=== PATIENT | female | born 1940 | race African-American/Black ===

== ENCOUNTER 2017-08-07 12:02 | Inpatient (IN) ==
--- NOTE | 2017-08-07 12:08 | Emergency Department Note ---
Disposition Clinical Impression: Intertrochanteric fracture of right hip Qualifiers: Encounter type: initial encounter Fracture type: closed Fracture alignment: displaced Qualified Code(s): S72.141A - Displaced intertrochanteric fracture of right femur, initial encounter for closed fracture Disposition: Admitted As Inpatient Condition: Fair Referrals: Jasmin Leone MD [Primary Care Provider] - Forms: ED Satisfaction Letter Time of Disposition: 15:41 Lower Extremity Injury HPI - General Chief Complaint: ED Extremity Injury, Lower Stated Complaint: fall/leg pain Time Seen by Provider: 08/07/17 12:05 Source: patient, EMS Mode of arrival: EMS Limitations: no limitations Nursing Notes Reviewed: Yes Vital Signs Reviewed: Yes - History of Present Illness HPI Narrative: 77-year-old walker with her and fell injuring her right hip region. Denies striking her head no loss of consciousness is not on a blood thinner. Pt Subjective Complaint: hip injury Injury location: Right hip Onset (ago): Just [employer] Mechanism of Injury: fall Context: fall Place: street/outdoors Pain Severity: severe Improves with: nothing Worsens with: weight bearing, movement Associated symptoms: Reports: unable to bear weight - Related Data Home Medications Medication Instructions Recorded Confirmed Allopurinol [Zyloprim 100 MG] 100 mg PO DAILY 05/08/17 06/12/17 Clopidogrel [Plavix] 75 mg PO DAILY 05/08/17 06/12/17 Gabapentin [Gralise] 300 mg PO TID 05/08/17 06/12/17 HYDROcodone/Acet 7.5/325 mg [[place] 1 tab PO Q4H 05/08/17 06/12/17 7.5-325 mg] NIFEdipine [Nifedipine ER] 60 mg PO QDPC 05/08/17 06/12/17 Simvastatin [Zocor] 40 mg PO HS 05/08/17 06/12/17 hydrALAZINE [HydrALAZINE] 25 mg PO Q8HR 05/08/17 06/12/17 PrednisoLONE Acetate 1% Opth 1 drop RIGHT EYE QID 06/12/17 06/12/17 [PredFORTE 1%] Allergies Allergy/AdvReac Type Severity Reaction Status Date / Time Iodinated Contrast- Oral and AdvReac Intermediate Hives Verified 06/12/17 15:25 IV Dye aspirin AdvReac Unknown Abdominal Verified 06/12/17 15:25 Pain Constitutional: Denies: fever, chills, weakness, weight change Eyes: Denies: eye pain, eye discharge, vision change ENT ED: Denies: ear pain, throat pain, dental pain, hearing loss, epistaxis, congestion, dysphagia Cardiovascular: Denies: chest pain, palpitations, dyspnea on exertion, edema, syncope Respiratory: Denies: cough, dyspnea, wheezes, hemoptysis, stridor Gastrointestinal: Denies: abdominal pain, nausea, vomiting, diarrhea, constipation, hematemesis, melena, hematochezia Genitourinary: Denies: dysuria, frequency, hematuria, discharge Musculoskeletal: Reports: arthralgia. Denies: back pain, neck pain, myalgia Integumentary: Denies: rash, abrasion, lesions Neurological: Denies: headache, weakness, numbness, paresthesias, confusion, abnormal gait, vertigo Psychiatric: Denies: anxiety, depression, suicidal thoughts, homicidal thoughts , auditory hallucinations, visual hallucinations Endocrine: Denies: fatigue Hematological/Lymphatic: Denies: easy bleeding, easy bruising Allergic/Immunologic: Denies: facial swelling, urticaria Past Medical History - Social History Smoking Status: Current every day smoker Alcohol use: Reports: none Drug use: Reports: none Physical Exam - General Limitations: no limitations General appearance: alert, in no apparent distress - Head Head exam: atraumatic, normocephalic, normal inspection - Eye Eye exam: Present: normal appearance, PERRL, EOMI - ENT ENT exam: normal exam, normal oropharynx, mucous membranes moist - Neck Neck exam: Present: normal inspection, full ROM, trachea midline - Chest Chest inspection: Present: normal inspection, symmetric chest wall rise - Respiratory Respiratory exam: Present: normal lung sounds bilaterally - Cardiovascular Cardiovascular exam: Present: regular rate, normal rhythm, normal heart sounds - Abdominal Exam Abdominal exam: Present: soft, Non-Tender. Absent: tenderness, distention, guarding, rebound, rigidity - Expanded Lower Extremity Exam Upper leg exam: Present: tenderness Neurovascular/Tendon exam: Absent: motor deficit, sensory deficit, tendon deficit Gait: not tested/not observed - Back Exam Back exam: Present: normal inspection, full ROM. Absent: tenderness - Neurological Exam Neurological exam: Present: alert, oriented X3. Absent: motor sensory deficit - Psychiatric Psychiatric exam: Present: normal affect, normal mood - Skin Skin exam: Present: warm, dry, intact, normal color Course - Reevaluation(s) Reevaluation #1: 77-year-old who fell injuring her right hip initial x-rays were read as negative CT scan shows an intratrochanteric fracture. Time: 15:39 - Consultations Consultation #1: Discussed with Dr. Patel, admit to the hospitalist will see the patient for the hip fracture. Time: 15:38 Consultation #2: Discussed with Dr. Blancas, admit. He requested preop labs. Time: 16:03 Vital Signs Temperature 97.3 F L 08/07/17 12:05 Pulse Rate 116 08/07/17 12:05 Respiratory Rate 16 08/07/17 12:05 Blood Pressure 147/86 08/07/17 12:05 O2 Sat by Pulse Oximetry 96 08/07/17 12:05 Temperature 97.3 F L 08/07/17 12:05 Pulse Rate 116 08/07/17 14:05 Respiratory Rate 16 08/07/17 14:05 Blood Pressure 177/89 08/07/17 14:05 O2 Sat by Pulse Oximetry 96 08/07/17 14:05 Oxygen Delivery Oxygen Delivery Room Air Extremity Injury, Lower - Radiology Data Radiology results reviewed: Yes I reviewed the patient's radiology results. Femur X-Ray 08/07/17 12:05 IMPRESSION: 1. Minimally displaced intertrochanteric fracture of the right hip. 2. Mild bony demineralization. 3. Mild degenerative changes of the bilateral hips. Of note, this final report differs from the preliminary report provided. The fracture was seen in retrospect after the CT was obtained on the same day. Please refer to dedicated CT report for further details. D/ / 08/07/2017 15:19:53 Aurelia Bailey MD / sahara Interpreting Provider: Aurelia Bailey MD Pelvis X-Ray 08/07/17 12:05 IMPRESSION: 1. Minimally displaced intertrochanteric fracture of the right hip. 2. Mild bony demineralization. 3. Mild degenerative changes of the bilateral hips. Of note, this final report differs from the preliminary report provided. The fracture was seen in retrospect after the CT was obtained on the same day. Please refer to dedicated CT report for further details. D/ : / 08/07/2017 15:19:53 Aurelia Bailey MD / sahara Interpreting Provider: Aurelia Bailey MD Pelvis CT 08/07/17 13:26 IMPRESSION: 1. Acute traumatic closed, mildly comminuted, minimally impacted and angulated right intertrochanteric femoral fracture. 2. Diffuse osteopenia. D/ : / 08/07/2017 15:21:06 Harmeet Mabry MD / miguel Interpreting Provider: Harmeet Mabry MD
[2017-08-07] MEDS ORDERED: *HR* Morphine 2 MG/ML SYRINGE SQ ONE (14:07)
[2017-08-07] MEDS ORDERED: Ondansetron ODT 4 MG TAB.RAPDIS SL ONE (14:07)
[2017-08-07] MEDS ORDERED: *HR* Morphine 2 MG/ML SYRINGE IVP PRN (15:40)
[2017-08-07 16:46] LABS: Basophils # 0.1 K/mcL (0.0-0.2); Basophils % 0.6 %; Eosinophils # 0.1 K/mcL (0.0-0.6); Eosinophils % 0.7 %; Hematocrit 41.2 % (35.3-44.9); Hemoglobin 13.3 g/dL (11.5-15.4); Immature Granulocytes % 0.1 % (0-4); Lymphocytes # 1.2 K/mcL (0.6-4.6); Lymphocytes % 12.5 %; Mean Corpuscular HGB Conc 32.3 g/dL (31.6-35.5); Mean Corpuscular Hemoglobin 27.9 pg (28.0-33.3); Mean Corpuscular Volume 86.6 fL (83.0-100.0); Monocytes # 0.6 K/mcL (0.0-1.3); Monocytes % 6.3 %; Neutrophils # 7.9 K/mcL (1.6-8.9); Platelet Count 228 K/mcL (140-400); Red Blood Count 4.76 M/mcL (3.82-4.97); Red Cell Distribution Width 13.2 % (11.5-14.5); Segmented Neutrophils % 79.8 %
[2017-08-07 16:53] LABS: Prothrombin Time 11.2 Seconds (9.4-12.1)
[2017-08-07 16:55] LABS: Activated Partial Thrombo Time 34.2 Seconds (26.0-36.0)
[2017-08-07 17:01] LABS: Calcium 9.4 mg/dL (8.6-10.3); Potassium 4.2 mEq/L (3.5-5.1)
[2017-08-07] MEDS ORDERED: tiZANidine 4 MG TABLET PO PRN (21:22)
[2017-08-07] MEDS ORDERED: Temazepam 15 MG CAPSULE PO PRN (21:26)
[2017-08-07] MEDS ORDERED: Naloxone 0.4 MG/ML INJ IVP PRN (21:50)
[2017-08-07] MEDS ORDERED: *HR* HYDROmorphone (PF) 1 MG/ML SYRINGE IVP PRN (21:50)
[2017-08-07] MEDS ORDERED: Ondansetron 4 MG/2 ML VIAL IVP PRN (21:50)
[2017-08-07] MEDS ORDERED: Acetaminophen 325 MG TABLET PO PRN (21:50)
[2017-08-07] MEDS ORDERED: *HR* HYDROcodone/Acet 5/325 mg TABLET PO PRN (21:50)
[2017-08-07] MEDS: *HR* OxyCODONE/APAP 10/325 TABLET PO PRN (22:14)
--- NOTE | 2017-08-07 22:33 | Anesthesia Evaluation PreOp ---
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 with maintenance dosing through 2014 -- patient is currently in remission; right eye injury in 2010) Anesthesia History: No Prior Anesthetic Complications, Past Anesthesia ( appendectomy, hysterectomy, tonsillectomy, back surgery, right knee replacement) Alcohol Use: none Drug use: none Medications and Allergies Allopurinol [Zyloprim 100 MG] 200 mg PO BID 05/08/17 [History] NIFEdipine [Nifedipine ER] 60 mg PO DAILY 05/08/17 [History] Simvastatin [Zocor] 40 mg PO HS 05/08/17 [History] Cholecalciferol (D-3) [Vitamin D] 1,000 unit PO DAILY 08/07/17 [History] Cyanocobalamin (Vitamin B-12) [Vitamin B-12] 500 mcg PO DAILY 08/07/17 [History] Gabapentin [Neurontin] 300 mg PO QAM 08/07/17 [History] Gabapentin [Neurontin] 400 mg PO HS 08/07/17 [History] Meloxicam [Meloxicam] 15 mg PO DAILY 08/07/17 [History] Oxycodone HCl/Acetaminophen [Percocet 10-325 mg Tablet] 1 each PO Q8H PRN [History] Tizanidine HCl 4 mg PO Q8H PRN 08/07/17 [History] 3 Allergy/AdvReac Type Severity Reaction Status Date / Time Iodinated Contrast- Oral and AdvReac Intermediate Hives Verified 06/12/17 15:25 IV Dye aspirin AdvReac Unknown Abdominal Verified 06/12/17 15:25 Pain - Meds/Allergy Pre-op Review Medications Reviewed: Yes Allergies Reviewed: Yes Beta Blockers on Current Med List: No Anesthesia Results - Labs 08/08/17 06:21 08/08/17 06:21 - Imaging Additional studies: 08-08-17 TTE: Impressions: LVEF 60%. Mild left ventricular diastolic dysfunction. Normal right ventricular structure and function. Mild aortic regurgitation by color-flow imaging. May be moderate by Doppler. Mild mitral regurgitation. Mild tricuspid regurgitation. Mild pulmonic regurgitation. Mild pulmonary hypertension. Anesthesia Exam Last Vital Signs Temp 98.3 F 08/07/17 20:01 Pulse 74 08/07/17 20:01 Resp 14 08/07/17 20:01 BP 178/76 08/07/17 20:01 Pulse Ox 98 08/07/17 20:01 Weight: 54 kg - HEENT Pupil (Motor): Pupils equal, EOMI Mallampati: III Teeth: Missing, Poor dentition Oral Opening: Greater than 3 - INSURANCE AGENCY OWNER LOC: Oriented - Cardiac Rhythm: Regular Murmur: None - Pulmonary Breath Sounds: bilateral Clear Respiratory Effort: Symmetrical Anesthesia Assess/Plan ASA Score: 3 Modified Beatriz Scale for Level of Consciousness: Cooperative, oriented, and tranquil Anesthetic Plan: General Monitoring Plan: Standard Monitors Recovery Plan: PACU
--- NOTE | 2017-08-07 23:23 | Internal Med History&Physical ---
<Darvin Abel - Last Filed: 08/08/17 00:00> Date of Encounter: 08/08/17 Time of Encounter: 20:30 Assessment and Plan (1) Intertrochanteric fracture of right hip Current visit: Yes Status: Acute Acute displaced intertrochanteric fracture of the right femur (closed) sustained from fall this morning in bathroom. Pts. reports he was in another room when pt. called out for him. He reports pts. legs were folded under her body and she had injured her right LE. He reports she was unable to bear weight following fall. CT of the right lower extremity without contrast today shows acute traumatic closed fracture of the right proximal femur involving the intertrochanteric region and greater trochanter unchanged from CT pelvis and x-ray studies earlier today. No additional fractures are identified. Degenerative changes to the right hip and knee. Diffuse bone demineralization. Orthopedic consult ordered in ED and I appreciate the consult. Pt. has hx of syncopal falls, so echocardiogram and bilateral carotid Dopplers ordered. Recommend holding surgery to assess for possible surgical risk based on these results. Stair-step pain medications for pain mgmt. Falls/ safety precautions w/bedrest. PT/OT consults ordered to assess for post- discharge rehabilitation placement/needs. Urinary Maciel catheter ordered d/t pts. inability to bear weight d/t trauma. Pt. discussed w/Dr. Franco who is in agreement w/plan of care. Pt. is at high risk for further morbidity and injury d/t current fx of right femur, hx of syncopal falls, current sx, and risk factors. Inpatient. Qualifiers: Encounter type: initial encounter Fracture type: closed Fracture alignment: displaced Qualified Code(s): S72.141A - Displaced intertrochanteric fracture of right femur, initial encounter for closed fracture (2) Underweight Current visit: Yes Status: Acute Acute underweight status. Current BMI 19.0. Pts. reports pt. has not been eating or drinking much recently. Nutrition consult ordered to assess for PO supplementation. Monitor I&O and daily weight. 0.9 NS IV fluids @ 100mL/HR ordered. (3) Hx of syncope Current visit: Yes Status: Chronic Hx of syncopal falls. Pts. reports pt. has become syncopal and fallen several times in the past. Today's fall unwitnessed so there is uncertainty if fall was d/t syncope. Echocardiogram ordered. Bilateral carotid Doppler duplex imaging ordered. Recommend holding surgery until echocardiogram and carotid Doppler results are available at assess for surgical risk. Falls/safety precautions. (4) HLD (hyperlipidemia) Current visit: Yes Status: Chronic Hx of chronic HLD. Lipid panel in a.m. labs. Continue pts. Zocor. Qualifiers: Hyperlipidemia type: pure hypercholesterolemia Qualified Code(s): E78.00 - Pure hypercholesterolemia, unspecified; E78.0 - Pure hypercholesterolemia (5) Gout Current visit: Yes Status: Chronic Hx of chronic gout. Uric acid in a.m. labs. Continue pts. Allopurinol. Qualifiers: Gout site: unspecified site Gout etiology: unspecified cause Chronicity: chronic Presence of tophus: without tophus Qualified Code(s): M1A.9XX0 - Chronic gout, unspecified, without tophus (tophi) (6) Arthritis Current visit: Yes Status: Chronic Hx of chronic arthritis. Stair-step pain medications for pain mgmt. Will hold pts. meloxicam d/t current CKD, GFR of 34, and creatinine of 1.47. (7) CKD (chronic kidney disease) stage 3, GFR 30-59 ml/min Current visit: Yes Status: Chronic Hx of chronic CKD. Currently stage 3 w/GFR of 34 and creatinine of 1.47. Will use IV fluids judiciously and avoid nephrotoxins. Hold meloxicam. Monitor I&O and daily weight. (8) DVT prophylaxis Current visit: Yes Status: Acute Bilateral foot pumps ordered for DVT prophylaxis d/t possible surgical intervention. Internal Medicine - H&P: HPI Chief complaint: RLE injury/pain Admitted From: Emergency Dept Plans for Post Hospital Care: Home History of present illness: Ms. Witt is a 77 year old female with medical hx of HLD, gout, and arthritis presents from the ED with chief complaint of right lower extremity pain related to a fall sustained in the bathroom today at 9 AM. Patient's states he was in another room when patient fell and reports the patient has previous syncopal falls. Patient is not currently anticoagulated. Patient denies recent illness, fever, chills, weakness, changes in vision, cough, chest pain, palpitations, shortness of breath, abdominal pain, nausea, vomiting, diarrhea, constipation, unusual bleeding, headache, weakness, numbness, tingling, dizziness, or lightheadedness. Past Med Surg Social Fam HX - Past Medical History Source: patient, old records reviewed, obtained from family (Lymphoma) Medical history: cancer, CVA, hyperlipidemia, hypertension, TIA, other Psychiatric history: no psych history - Social History Smoking Status: Current every day smoker Packs per day: 1 PPD Smokeless Tobacco Status: No Alcohol use: none Drug use: none Current living situation: Home, With Family Activity Level: Uses cane/walker Recent Out of Country Travel Within the Last 8 Weeks: No Exposure or Possible Exposure to Illness During Travel: No - Family History Father Race: Family Member Ethnicity: Non- Living Status: Age at : 57 Cause of : Lung cancer Hx Family Cancer: Yes (Lung) Mother Race: Family Member Ethnicity: Non- Living Status: Age at : 51 Cause of : Colon cancer Hx Family Cancer: Yes (Colon) Brother Race: Family Member Ethnicity: Non- Living Status: Still Living Hx Family Medical Disorders: No Sister Race: Family Member Ethnicity: Non- Living Status: Still Living Hx Family Respiratory Disorders: Yes (COPD) Hx Family Neurologic Disorders: Yes (Syncope) Internal Medicine - H&P: Meds Allopurinol [Zyloprim 100 MG] 200 mg PO BID 05/08/17 [History] NIFEdipine [Nifedipine ER] 60 mg PO DAILY 05/08/17 [History] Simvastatin [Zocor] 40 mg PO HS 05/08/17 [History] Cholecalciferol (D-3) [Vitamin D] 1,000 unit PO DAILY 08/07/17 [History] Cyanocobalamin (Vitamin B-12) [Vitamin B-12] 500 mcg PO DAILY 08/07/17 [History] Gabapentin [Neurontin] 300 mg PO QAM 08/07/17 [History] Gabapentin [Neurontin] 400 mg PO HS 08/07/17 [History] Meloxicam [Meloxicam] 15 mg PO DAILY 08/07/17 [History] Oxycodone HCl/Acetaminophen [Percocet 10-325 mg Tablet] 1 each PO Q8H PRN [History] Tizanidine HCl 4 mg PO Q8H PRN 08/07/17 [History] 3 Allergy/AdvReac Type Severity Reaction Status Date / Time Iodinated Contrast- Oral and AdvReac Intermediate Hives Verified 06/12/17 15:25 IV Dye aspirin AdvReac Unknown Abdominal Verified 06/12/17 15:25 Pain All Systems PM: A 10-system review of systems was performed and is negative for pertinent findings except as documented above in the HPI. - Constitutional Constitutional: as per HPI, falls, no chills, no fever(s), no night sweats - EENT Eyes: no change in vision, no discharge, no pain, no photophobia Ears: no ear discharge, no ear pain, no tinnitus Nose, mouth and throat: no dysphagia, no nasal discharge, no neck pain, no sore throat - Breasts Breasts: as per HPI - Cardiovascular Cardiovascular ROS IM: as per HPI, irregular heart rhythm (Murmur r/t rheumatic fever as child), syncope, no chest pain, no diaphoresis, no dyspnea, no lightheadedness, no palpitations - Respiratory Respiratory: no cough, no dyspnea, no wheezing, no excessive phlegm production - Gastrointestinal Gastrointestinal: no abdominal pain, no diarrhea, no hematemesis, no hematochezia, no melena, no nausea, no vomiting - Genitourinary Genitourinary: no change in urinary stream, no dysuria, no flank pain, no hematuria Menstruation: as per HPI - Musculoskeletal Musculoskeletal ROS IM: as per HPI, arthralgias, no numbness, no tingling - Integumentary Integumentary IM: no rash, no unusual bruising - Neurological Neurological ROS: as per HPI, memory loss, no confusion, no convulsions, no focal weakness, no numbness, no tingling, no tremor(s) - Psychiatric Psychiatric: as per HPI - Endocrine Endocrine IM: as per HPI - Hematologic/Lymphatic Hematologic/Lymphatic: no easy bruising - Allergic/Immunologic Allergic/Immunologic: as per HPI - Constitutional Vitals: Temp Pulse Resp BP Pulse Ox 98.3 F 74 14 178/76 98 08/07/17 20:01 08/07/17 20:01 08/07/17 20:01 08/07/17 20:01 08/07/17 20:01 General appearance: Present: cooperative, A&O X 3, pleasant, severe distress ( Pain in right leg), underweight, answers questions appropriately - Head Head exam: Present: atraumatic, normocephalic - Eye Eye exam: Present: PERRL, conjuntiva pink, sclera anicteric Pupils: Present: PERRL - ENT ENT exam: Present: normal exam - Neck Neck exam general surgery: Present: normal inspection - Respiratory Respiratory exam: Present: CTAB. Absent: accessory muscle use, rales, rhonchi, wheezes - Cardiovascular Cardiovascular exam: Present: irregular rhythm - GI/Abdominal GI/Abdominal exam: Present: normal bowel sounds, soft, no peritoneal signs. Absent: distended, tenderness - Rectal Rectal exam: Present: deferred - Additional comments: exam deferred. - Extremities Exam Extremities exam: Present: tenderness (Right leg) - Back Exam Back exam: Present: normal inspection - Neurological Exam Neurological exam: Present: CN II-XII intact, oriented X3 (Pt. exhibits minor forgetfulness during exam), no focal deficits. Absent: pronater drift, facial droop, speech deficit - Psychiatric Psychiatric exam: Present: anxious - Skin Skin exam: Present: dry, intact Internal Med - H&P Results - Labs CBC & Chem 7: 08/07/17 16:30 08/07/17 16:30 - Diagnostic Studies Other Images Additional comments: Impressions Femur X-Ray 08/07/17 12:05 IMPRESSION: 1. Minimally displaced intertrochanteric fracture of the right hip. 2. Mild bony demineralization. 3. Mild degenerative changes of the bilateral hips. Of note, this final report differs from the preliminary report provided. The fracture was seen in retrospect after the CT was obtained on the same day. Please refer to dedicated CT report for further details. D/ / 08/07/2017 15:19:53 Aurelia Bailey MD / sahara Interpreting Provider: Aurelia Bailey MD Pelvis X-Ray 08/07/17 12:05 IMPRESSION: 1. Minimally displaced intertrochanteric fracture of the right hip. 2. Mild bony demineralization. 3. Mild degenerative changes of the bilateral hips. Of note, this final report differs from the preliminary report provided. The fracture was seen in retrospect after the CT was obtained on the same day. Please refer to dedicated CT report for further details. D/ / 08/07/2017 15:19:53 Aurelia aBiley MD / sahara Interpreting Provider: Aurelia Bailey MD Lower Extremity CT 08/07/17 13:26 IMPRESSION: Redemonstration of acute traumatic closed fracture of right proximal femur involving the intertrochanteric region and greater trochanter unchanged from CT pelvis and x-ray studies earlier today. No additional fractures are identified. Degenerative changes to the right hip and right knee. Diffuse bone demineralization. D/ / 08/07/2017 15:49:28 Octavio Elise MD / holly Interpreting Provider: Octavio Elise MD CT scan - pelvis Additional comments: Impressions Pelvis CT 08/07/17 13:26 IMPRESSION: 1. Acute traumatic closed, mildly comminuted, minimally impacted and angulated right intertrochanteric femoral fracture. 2. Diffuse osteopenia. D/ / 08/07/2017 15:21:06 Harmeet Mabry MD / miguel Interpreting Provider: Harmeet Mabry MD - VTE Documentation of Mechanical Device: Venous foot pump, device <Yvon Franco - Last Filed: 08/08/17 00:26> Date of Encounter: 08/08/17 Time of Encounter: 00:15 - Constitutional Vitals: Temp Pulse Resp BP Pulse Ox 98.3 F 74 14 175/81 99 08/07/17 23:47 08/07/17 23:47 08/07/17 23:47 08/07/17 23:47 08/07/17 23:47 General appearance: Present: cooperative, A&O X 3, pleasant, underweight, answers questions appropriately - Head Head exam: Present: atraumatic, normal inspection - Eye Eye exam: Present: EOMI, PERRL. Absent: scleral icterus - ENT ENT exam: Present: mucous membranes dry, normal exam - Neck Neck exam general surgery: Present: normal inspection, supple. Absent: tenderness - Expanded Neck Exam Neck exam: Absent: carotid bruit - Respiratory Respiratory exam: Present: CTAB. Absent: rales, rhonchi, wheezes - Cardiovascular Cardiovascular exam: Present: +S1, +S2, systolic murmur (faint grade 1 murmur). Absent: diastolic murmur - GI/Abdominal GI/Abdominal exam: Present: normal bowel sounds, soft. Absent: tenderness - Extremities Exam Extremities exam: Present: normal capillary refill, tenderness. Absent: calf tenderness - Back Exam Back exam: Absent: CVA tenderness (L), CVA tenderness (R) - Skin Skin exam: Present: dry, warm. Absent: rash Internal Med - H&P Results - Labs CBC & Chem 7: 08/07/17 16:30 08/07/17 16:30 Labs: Urine 08/07/17 Range/Units 23:20 Urine Color Yellow (Yellow) Urine Clarity Turbid A (Clear) Urine pH 7.0 (5.0-8.0) pH Units Ur Specific [place] 1.013 (1.010-1.025) Urine Protein 30 H (Neg-Trace) mg/dL Urine Glucose (UA) Normal (Normal) mg/dL - Attending Attestation I discussed the patient [place] ROS, lab data, and exam findings with German Abel CNP. I then saw and examined patient independently as well. Patient is in no distress other than some pain in her right leg/hip. She is a little confused and disoriented now (chronic), likely exacerbated by pain meds received in ER. Her is present and confirms the history above. Additionally, he confirms the she has had several episodes of syncope. Further history reveals that she has history of rheumatic fever as a child and history of heart murmur. also informs me that she has history of bilateral carotid stenosis. All the above were diagnosed in [place] (where they resided until 6 months ago), and we have no available old records. Given the above history, I agree with German to order ECHO and Carotid Dopplers with review by daytime hospitalist prior to allowing patient to undergo surgery. I worry about severe aortic stenosis and/or bilateral severe carotid stenosis. If either are present, patient would be high risk for cardiovascular and/or neurovascular complications with surgery. Nonetheless, patient will most likely require surgical repair. Further consultation with cardiology and/or vascular surgery prior to surgery may be warranted pending the imaging studies noted above. Other than my comments above and noted exam findings, I agree with German's assessment and plan.
[2017-08-07 23:35] LABS: Bilirubin,Urine Negative (Negative); Blood,Urine Trace (Negative); Clarity,Urine Turbid (Clear); Color,Urine Yellow (Yellow); Glucose,Urine (UA) Normal (Normal); Ketones,Urine Negative (Negative); Leukocyte Esterase,Urine Large (Negative); Nitrite,Urine Positive (Negative); Protein,Urine 30 mg/dL (Neg-Trace); Specific Gravity,Urine 1.013 (1.010-1.025); Urobilinogen,Urine Normal (Normal)
[2017-08-07 23:38] LABS: Bacteria,Urine Many per hpf (None-Few); Hyaline Casts,Urine None Seen per lpf (None-Few); Squamous Epithelial Cell,Urine Many per lpf (None-Few); WBC,Urine TNTC per hpf (0-3)
[2017-08-08] MEDS: 0.9 % Sodium Chloride 1,000 ML IVC SCH ×2 (00:13→14:16)
[2017-08-08 06:49] LABS: Basophils # 0.1 K/mcL (0.0-0.2); Eosinophils # 0.2 K/mcL (0.0-0.6); Eosinophils % 3.8 %; Hematocrit 35.8 % (35.3-44.9); Hemoglobin 11.8 g/dL (11.5-15.4); Immature Granulocytes % 0.2 % (0-4); Lymphocytes # 1.7 K/mcL (0.6-4.6); Lymphocytes % 27.5 %; Mean Corpuscular Hemoglobin 28.6 pg (28.0-33.3); Mean Corpuscular Volume 86.7 fL (83.0-100.0); Monocytes # 0.6 K/mcL (0.0-1.3); Monocytes % 9.3 %; Neutrophils # 3.6 K/mcL (1.6-8.9); Platelet Count 191 K/mcL (140-400); Red Blood Count 4.13 M/mcL (3.82-4.97); Red Cell Distribution Width 13.2 % (11.5-14.5); Segmented Neutrophils % 58.2 %
[2017-08-08 06:54] LABS: Hemoglobin A1C 5.3 %
[2017-08-08 07:08] LABS: Albumin 3.4 g/dL (3.5-5.7); Albumin/Globulin Ratio 1.5 (1.1-2.2); Bilirubin,Total 0.6 mg/dL (0.3-1.0); Calcium 8.9 mg/dL (8.6-10.3); Chol/HDL Ratio 3.7 (0-4.9); Globulin 2.2 g/dL (2.4-3.5); Magnesium 2.1 mg/dL (1.6-2.6); Potassium 3.9 mEq/L (3.5-5.1); Total Protein 5.6 g/dL (6.4-8.9); Uric Acid 5.7 mg/dL (2.3-7.6)
[2017-08-08] MEDS: *HR* OxyCODONE/APAP 10/325 TABLET PO PRN ×2 (07:54→21:51)
--- NOTE | 2017-08-08 08:20 | Orthopedic Consult Note ---
Date of Encounter: 08/08/17 Time of Encounter: 08:11 Assessment and Plan (1) Intertrochanteric fracture of right hip Current Visit: Yes Status: Acute The diagnosis and treatment options were discussed with Geri. She has a right hip fracture, and to allow ambulation, ADLs and getting out of bed to decrease risk of medical complications surgery is recommended. Risks and benefits were discussed and she would like to proceed. -NPO -R hip nail today -Consent signed Qualifiers: Encounter type: initial encounter Fracture type: closed Fracture alignment: displaced Qualified Code(s): S72.141A - Displaced intertrochanteric fracture of right femur, initial encounter for closed fracture History of Present Illness Chief complaint: R hip pain HPI: Ms. Witt is a 77 year old female who had a fall from standing while at home yesterday. Had immediate pain in her right hip with inability to ambulate. Was brought to ED and diagnosed with a right hip fracture and admitted for definitive treatment. Denies pain in other extremities. Denies passing out or blacking out prior to fall. Ambulates with cane. Past Med Surg Social Fam HX - Past Medical History Medical history: cancer, CVA, hyperlipidemia, hypertension, TIA, other Psychiatric history: no psych history - Social History Smoking Status: Current every day smoker Packs per day: 1 PPD Smokeless Tobacco Status: No Alcohol use: none Drug use: none - Family History Father Race: Family Member Ethnicity: Non- Living Status: Age at : 57 Cause of : Lung cancer Hx Family Cancer: Yes (Lung) Mother Race: Family Member Ethnicity: Non- Living Status: Age at : 51 Cause of : Colon cancer Hx Family Cancer: Yes (Colon) Brother Race: Family Member Ethnicity: Non- Living Status: Still Living Hx Family Medical Disorders: No Sister Race: Family Member Ethnicity: Non- Living Status: Still Living Hx Family Respiratory Disorders: Yes (COPD) Hx Family Neurologic Disorders: Yes (Syncope) Medications and Allergies Allopurinol [Zyloprim 100 MG] 200 mg PO BID 05/08/17 [History] NIFEdipine [Nifedipine ER] 60 mg PO DAILY 05/08/17 [History] Simvastatin [Zocor] 40 mg PO HS 05/08/17 [History] Cholecalciferol (D-3) [Vitamin D] 1,000 unit PO DAILY 08/07/17 [History] Cyanocobalamin (Vitamin B-12) [Vitamin B-12] 500 mcg PO DAILY 08/07/17 [History] Gabapentin [Neurontin] 300 mg PO QAM 08/07/17 [History] Gabapentin [Neurontin] 400 mg PO HS 08/07/17 [History] Meloxicam [Meloxicam] 15 mg PO DAILY 08/07/17 [History] Oxycodone HCl/Acetaminophen [Percocet 10-325 mg Tablet] 1 each PO Q8H PRN [History] Tizanidine HCl 4 mg PO Q8H PRN 08/07/17 [History] 3 Allergy/AdvReac Type Severity Reaction Status Date / Time Iodinated Contrast- Oral and AdvReac Intermediate Hives Verified 06/12/17 15:25 IV Dye aspirin AdvReac Unknown Abdominal Verified 06/12/17 15:25 Pain All Systems Reviewed: A 10-system review of systems was performed and is negative for pertinent findings except as documented above in the HPI. Physical Exam - Constitutional Vitals: Temp Pulse Resp BP Pulse Ox 99.0 F 69 16 189/76 93 08/08/17 06:43 08/08/17 06:43 08/08/17 06:43 08/08/17 06:43 08/08/17 06:43 General appearance IM: A&O X 3, pleasant Exam: Consult Exam: Constitutional -Vitals reviewed -The patient is well developed and well nourished. -Mood is pleasant. -The patient is well groomed. Psychiatric -The patient is fully alert and oriented x 3. Respiratory: -Respiratory effort normal Abdomen: -Soft abdomen -Non tender -Non distended: Left upper extremity: -No deformities. The overlying skin is intact. No obvious signs of acute trauma. -No tenderness to palpation throughout. -No significant pain with passive motion of the shoulder, elbow, wrist, and fingers within the limits of the bed. -Able to make an "OK" sign, cross the index and long fingers, and extend the thumb. -Sensation grossly intact to light touch throughout the median, radial, and ulnar distributions. -Radial pulse is present; Fingers have good capillary refill. Right upper extremity: -No deformities. The overlying skin is intact. No obvious signs of acute trauma. -No tenderness to palpation throughout. -No significant pain with passive motion of the shoulder, elbow, wrist, and fingers within the limits of the bed. -Able to make an "OK" sign, cross the index and long fingers, and extend the thumb. -Sensation grossly intact to light touch throughout the median, radial, and ulnar distributions. -Radial pulse is present; Fingers have good capillary refill. Left lower extremity: -No deformities. The overlying skin is intact. No obvious signs of acute trauma. -No tenderness to palpation throughout. -No pain with passive motion of the hip, knee, ankle, and toes within the limits of the bed. -No pain with axial loading of the thigh. -Able to dorsiflex and plantarflex the ankle and toes. -Sensation is grossly intact to light touch throughout the sural, saphenous, superficial peroneal, and deep peroneal distributions. -Toes have good capillary refill. Right lower extremity: -The extremity is shortened and externally rotated. The overlying skin is intact. -There is tenderness in the groin region as well as the proximal lateral thigh. -I did not range the hip due to the known fracture. -No tenderness along the distal thigh, leg, ankle, foot, or toes. -Able to dorsiflex and plantarflex the ankle and toes. -Sensation is grossly intact to light touch throughout the sural, saphenous, superficial peroneal, and deep peroneal distributions -BCR toes. Results - Labs Result Diagrams: 08/08/17 06:21 08/08/17 06:21 Labs: Abnormal lab results Chloride 108 mEq/L (98-107) H 08/08/17 06:21 Creatinine 1.67 mg/dL (0.60-1.20) H 08/08/17 06:21 Est GFR ( Amer) 36 (> 60) L 08/08/17 06:21 Est GFR (Non-Af Amer) 30 (> 60) L 08/08/17 06:21 POC Glucose 134 (58-89) H 08/07/17 22:19 AST 8 Units/L (13-39) L 08/08/17 06:21 Serum Total Protein 5.6 g/dL (6.4-8.9) L 08/08/17 06:21 Albumin 3.4 g/dL (3.5-5.7) L 08/08/17 06:21 Globulin 2.2 g/dL (2.4-3.5) L 08/08/17 06:21 LDL Cholesterol, Calc 103 mg/dL (0-99) H 08/08/17 06:21 Urine Clarity Turbid (Clear) A 08/07/17 23:20 Urine Protein 30 mg/dL (Neg-Trace) H 08/07/17 23:20 Urine Blood Trace (Negative) H 08/07/17 23:20 Urine Nitrite Positive (Negative) A 08/07/17 23:20 Ur Leukocyte Esterase Large (Negative) H 08/07/17 23:20 Urine Microscopic RBC 5-15 per hpf (0-3) H 08/07/17 23:20 Urine Microscopic WBC TNTC per hpf (0-3) H 08/07/17 23:20 Ur Squamous Epith Cells Many per lpf (None-Few) H 08/07/17 23:20 Urine Bacteria Many per hpf (None-Few) H 08/07/17 23:20 H & H 08/08/17 Range/Units 06:21 Hgb 11.8 D (11.5-15.4) g/dL Hct 35.8 (35.3-44.9) % All other labs normal. - Diagnostic results Hip x-ray: report reviewed, image reviewed (Mildly displaced right intertrochanteric hip fracture) Hip CT: report reviewed, image reviewed Consult Discharge Plan - Plan Referrals: Jasmin Leone MD [Primary Care Provider] -
[2017-08-08] MEDS ORDERED: MELOXICAM 15 MG PO SCH (09:00)
[2017-08-08] MEDS ORDERED: Gabapentin 300 MG CAPSULE PO SCH (09:00)
[2017-08-08] MEDS ORDERED: Cholecalciferol (D-3) 1,000 UNIT TABLET PO SCH (09:00)
[2017-08-08] MEDS ORDERED: NIFEdipine XL (24 HR) 60 MG TAB.ER.24 PO SCH (09:00)
[2017-08-08] MEDS ORDERED: Cyanocobalamin (B-12) 1,000 MCG TABLET PO SCH (09:00)
--- NOTE | 2017-08-08 12:17 | Electrocardiograph Report ---
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
--- NOTE | 2017-08-08 12:17 | Electrocardiograph Report ---
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
--- NOTE | 2017-08-08 15:55 | Internal Med Progress Note ---
Date of Encounter: 08/08/17 Time of Encounter: 15:52 - Assessment and plan (1) Intertrochanteric fracture of right hip Current Visit: Yes Status: Acute Assessment and plan: Ortho surgery was consult, she will have open surgery today. Patient has no known history of CAD, but CKD III, creatinine less than 2, she is interactive at home unable to assist her functional capacity. she had echocardiogram done shows EF 60% grade 1 diastolic dysfunction. No further cardiac testing. Pending carotid doppler, pending reading, I spoke to vascular surgeon, Dr Jay. he is aware of the surgery today. Qualifiers: Encounter type: initial encounter Fracture type: closed Fracture alignment: displaced Qualified Code(s): S72.141A - Displaced intertrochanteric fracture of right femur, initial encounter for closed fracture (2) UTI (urinary tract infection) Current Visit: Yes Status: Acute Assessment and plan: UA showed increased white cells positive nitrates we will treat for UTI with ceftriaxone Qualifiers: Urinary tract infection type: acute cystitis Hematuria presence: without hematuria Qualified Code(s): N30.00 - Acute cystitis without hematuria (3) HLD (hyperlipidemia) Current Visit: Yes Status: Chronic Qualifiers: Hyperlipidemia type: unspecified Qualified Code(s): E78.5 - Hyperlipidemia , unspecified (4) Gout Current Visit: Yes Status: Chronic Assessment and plan: Continue allopurinol 200 mg twice a day Qualifiers: Gout site: unspecified site Gout etiology: unspecified cause Chronicity: chronic Presence of tophus: without tophus Qualified Code(s): M1A.9XX0 - Chronic gout, unspecified, without tophus (tophi) (5) Arthritis Current Visit: Yes Status: Chronic (6) DVT prophylaxis Current Visit: Yes Status: Acute Assessment and plan: SCDs (7) Hx of syncope Current Visit: Yes Status: Chronic Assessment and plan: Patient has history of stroke and carotid stenosis. Carotid Doppler still pending. I spoke to Dr. Jay he is going to read a result after he finishes surgery. Patient is at increased the risk for perioperative stroke. (8) CKD (chronic kidney disease) stage 3, GFR 30-59 ml/min Current Visit: Yes Status: Chronic Assessment and plan: Continue IV fluids and monitor creatinine avoided nephrotoxic hypotension. - Time Spent With Patient Greater than 35 minutes - Subjective Interval history: Ms. Witt is a 77 year old female with medical hx of HLD, gout, and arthritis presents from the ED with chief complaint of right lower extremity pain related to a fall sustained in the bathroom today at 9 AM. She was found right hip fracture Patient is doing ok, pain is controlled, she has hx of stroke and carotid stenosis, pending carotid doppler. I called vascular surgeon Dr Brown, he will read the result after surgery. Echo showed normal EF 60%, grade 1 diastolic dysfunction. - Constitutional Vitals: Temp Pulse Resp BP Pulse Ox 98.3 F 71 18 162/73 97 08/08/17 15:36 08/08/17 15:36 08/08/17 15:36 08/08/17 15:36 08/08/17 15:36 General appearance: Present: cooperative, A&O X 3, pleasant, underweight, answers questions appropriately Exam: CONSTITUTIONAL: Patient appears as an age appropriate female well developed, in no acute distress. EYES Clear sclerae, bilateral pupils are equal, reactive to light and accommodation. Extraocular movements are intact RESPIRATORY: No accessory muscle use, bilateral clear to auscultation, no wheezing, no crackles/rales. CARDIOVASCULAR: Regular heart rate, normal S1 and S2, no murmurs GASTROINTESTINAL: bowel sounds present, soft, no tenderness. No hepatosplenomegaly. No bilateral CVA tenderness MUSCULOSKELETAL: Joints in normal range of motion, no clubbing, no edema, no cyanosis. Bilateral peripheral pulses 2+ LYMPHATIC no lymphadenopathy in neck, groin and axilla bilaterally, no thyromegaly. NEUROLOGIC: CN II to XII are grossly intact, no focal neurological deficit. Deep tendon reflexes 2+ bilaterally. Normal light touch sensation to upper and lower extremity PSYCHIATRIC: Oriented x3, with good insight, mood is euthymic. No hallucinations or delusions. SKIN: Skin warm and dry, no rashes, no open wound. Internal Medicine: Result - Labs CBC & Chem 7: 08/08/17 06:21 08/08/17 06:21 Labs: Short CBC 08/08/17 Range/Units 06:21 WBC 6.1 (4.3-11.1) K/mcL Hgb 11.8 D (11.5-15.4) g/dL Hct 35.8 (35.3-44.9) % Plt Count 191 (140-400) K/mcL Neutrophils # 3.6 (1.6-8.9) K/mcL BMP 08/08/17 06:21 Sodium 139 Potassium 3.9 Chloride 108 H Carbon Dioxide 29 BUN 20 Creatinine 1.67 H Glucose 94 Calcium 8.9 Liver Function 08/08/17 Range/Units 06:21 Total Bilirubin 0.6 (0.3-1.0) mg/dL AST 8 L (13-39) Units/L ALT 7 (7-52) Units/L Alkaline Phosphatase 80 (34-104) Units/L Albumin 3.4 L (3.5-5.7) g/dL Urine 08/07/17 Range/Units 23:20 Urine Color Yellow (Yellow) Urine Clarity Turbid A (Clear) Urine pH 7.0 (5.0-8.0) pH Units Ur Specific [place] 1.013 (1.010-1.025) Urine Protein 30 H (Neg-Trace) mg/dL Urine Glucose (UA) Normal (Normal) mg/dL - ABG Interpretation ABG results: PT/INR, D-dimer PT 11.2 Seconds (9.4-12.1) 08/07/17 16:30 - Impressions Impressions Echocardiogram 08/08/17 22:00 Impressions: LVEF 60%. Mild left ventricular diastolic dysfunction. Normal right ventricular structure and function. Mild aortic regurgitation by color-flow imaging. May be moderate by Doppler. Mild mitral regurgitation. Mild tricuspid regurgitation. Mild pulmonic regurgitation. Mild pulmonary hypertension. Left Ventricular Wall Motion: Rest Echo Findings All wall segments showed normal motion. Findings: Study Quality * Technically adequate exam. ECG Findings * Normal sinus rhythm. Left Ventricle * LVEF 60%. * Asymmetric basal septal hypertrophy. No LVOTO. * Mild left ventricular diastolic dysfunction. Right Ventricle * Normal right ventricular structure and function. Left Atrium * Moderately dilated left atrium. Right Atrium * Normal right atrial size. Aortic Valve * Trileaflet aortic valve. * Mildly sclerotic aortic valve leaflets. * Mild aortic regurgitation by color-flow imaging. May be moderate by Doppler. * No aortic stenosis. Mitral Valve * Normal mitral valve structure. * No mitral stenosis. * Mildly thickened and calcified mitral valve leaflets. * Mild mitral regurgitation. Tricuspid Valve * Mild tricuspid regurgitation. * Normal tricuspid valve structure. * Estimated RA pressure is 3 mmHg. * Estimated RVSP is 39 mmHg. * Mild pulmonary hypertension. Pulmonic Valve * Pulmonic valve is not well visualized. * No pulmonic stenosis. * Mild pulmonic regurgitation. Pulmonary Artery * Pulmonary artery not well visualized. Aorta * Normally sized aortic root. * Ascending aorta is not well visualized. Pericardium * There is no pericardial effusion present. Interatrial Septum * No evidence of PFO with agitated saline contrast. IVC * Normal IVC dimensions and inspiratory collapse. - VTE Documentation of Mechanical Device: Venous foot pump, device Consult Discharge Plan - Plan Referrals: Jasmin Leone MD [Primary Care Provider] -
[2017-08-08] MEDS ORDERED: cefTRIAXone 1,000 MG in Water for inj. (sterile) 20 ML 10 ML IVP SCH (16:00)
[2017-08-08] MEDS ORDERED: *HR* Propofol 200 MG/20 ML VIAL IVP ONE ×2 (19:29→20:59)
[2017-08-08] MEDS ORDERED: *HR* FentaNYL (PF) 100 MCG/2 ML VIAL ONE ×2 (19:30→20:25)
[2017-08-08] MEDS ORDERED: *HR* Succinylcholine 200 MG/10 ML VIAL IVP ONE (19:30)
[2017-08-08] MEDS ORDERED: Ondansetron 4 MG/2 ML VIAL ONE (19:30)
[2017-08-08] MEDS ORDERED: Lidocaine -MPF 2% 2 ML VIAL ONE (19:30)
[2017-08-08] MEDS ORDERED: *HR* Rocuronium Bromide 50 MG/5 ML VIAL ONE (19:30)
[2017-08-08] MEDS ORDERED: Dexamethasone 4 MG/ML VIAL ONE (19:30)
[2017-08-08] MEDS ORDERED: Neostigmine Methylsulfate 3 MG/3 ML SYRINGE ONE (20:12)
[2017-08-08] MEDS ORDERED: Gabapentin 400 MG CAPSULE PO SCH (21:00)
[2017-08-08] MEDS ORDERED: Naloxone 0.4 MG/ML INJ IVP PRN (21:07)
[2017-08-08] MEDS ORDERED: *HR* HYDROmorphone (PF) 1 MG/ML SYRINGE IVP PRN ×2 (21:07→21:15)
[2017-08-08] MEDS ORDERED: Acetaminophen 325 MG TABLET PO PRN (21:07)
[2017-08-08] MEDS ORDERED: tiZANidine 4 MG TABLET PO PRN (21:07)
[2017-08-08] MEDS ORDERED: Temazepam 15 MG CAPSULE PO PRN (21:07)
[2017-08-08] MEDS ORDERED: Ondansetron 4 MG/2 ML VIAL IVP PRN (21:07)
--- NOTE | 2017-08-08 21:08 | Physician Discharge Referral ---
- Diagnosis (1) Intertrochanteric fracture of right hip Status: Acute - Transfer Medications Home Medications: Allopurinol [Zyloprim 100 MG] 200 mg PO BID 05/08/17 [History] NIFEdipine [Nifedipine ER] 60 mg PO DAILY 05/08/17 [History] Simvastatin [Zocor] 40 mg PO HS 05/08/17 [History] Cholecalciferol (D-3) [Vitamin D] 1,000 unit PO DAILY 08/07/17 [History] Cyanocobalamin (Vitamin B-12) [Vitamin B-12] 500 mcg PO DAILY 08/07/17 [History] Gabapentin [Neurontin] 300 mg PO QAM 08/07/17 [History] Gabapentin [Neurontin] 400 mg PO HS 08/07/17 [History] Meloxicam [Meloxicam] 15 mg PO DAILY 08/07/17 [History] Oxycodone HCl/Acetaminophen [Percocet 10-325 mg Tablet] 1 each PO Q8H PRN [History] Tizanidine HCl 4 mg PO Q8H PRN 08/07/17 [History] Allergies/Adverse Reactions: 3 Allergy/AdvReac Type Severity Reaction Status Date / Time Iodinated Contrast- Oral and AdvReac Intermediate Hives Verified 06/12/17 15:25 IV Dye aspirin AdvReac Unknown Abdominal Verified 06/12/17 15:25 Pain - Respiratory Orders Smoking Cessation: Smoking cessation has been advised. For more information, call the [place] Tobacco Quit Line at 1-356-GONY-NOW. - Mobility Orders Chair, Ambulate - Rehabiliation Orders Rehab Orders: ROM Exercises, Evaluation for Physical Therapy, Evaluation for Occupational Therapy Other: [facility] DISCHARGE INSTRUCTIONS Dr. Patel PROCEDURE PERFORMED Reduction and fixation of right hip. Incision care -Keep clear dressing in place. If dressing becomes saturated, may perform daily dressing changes to the right hip with dry gauze and either paper tape or medipore tape. -Avoid soaking wound in water (no hot tubs, bathtubs, swimming pools). -May shower after 2 weeks from surgery date. Carefully wash incision with soap and water. Gently pat it dry. Don't rub the incision, or apply creams or lotions. Sit on a shower stool when showering to keep from falling. Weight bearing status -Weightbearing as tolerated to the bilateral lower extremities. Medications -Pain medication per the discharging medical doctor -Enteric coated aspirin 325 mg by mouth twice per day for 28 days from the date of the surgery. [-Resume 50,000 units of vitamin D2 weekly and 1200 mg of calcium supplementation per day.] Other -Knee high SHEN hose 23 hours per day -Consult physical and occupational therapy for mobilization. -Up to chair with assistance at least twice per day. -Follow up with your primary care physician to discuss testing for bone mineral density. Follow-Up -Follow-up with Dr. Patel in office in 2 weeks from the surgery date for a post-operative evaluation. -Call the office at [phone] to schedule or confirm your appointment. -Follow up with your primary care physician to discuss testing for bone mineral density. - Diet Orders Regular CERTIFICATION: I certify that the transfer of the above named patient to an Extended Care Facility is necessary for the continuing treatment of the diagnosis listed. The above information is true and accurate reflection of patient's current condition. Confidential - Redisclosure prohibited without a patient's written consent.
--- NOTE | 2017-08-08 21:13 | Orthopedic Operative Note ---
Date of procedure: 08/08/17 Pre-op diagnosis: R intertrochanteric fracture Post-op diagnosis: same Procedure: INDICATIONS: This is a 77-year-old female who had a fall and sustained a right hip intertrochanteric fracture. After discussing the procedure at length, the patient elected for operative management with a cephalomedullary nail of the right hip. The risks and benefits of the procedure were fully explained. Those risks include but are not limited to, infection, neurovascular injury, continued pain, arthritis, stiffness, further injury, need for further surgery, DVT, PE, loss of limb, and loss of life. The patient understood all of these risks and wished to proceed. Informed consent was obtained. No guarantees were stated or implied. OPERATIVE REPORT: The patient was identified in the holding area. The right lower extremity was marked, the patient was taken to the operating room and general anesthetic was administered on the hospital bed. The patients head, neck and airway were protected by anesthesia through the case. The patient was then transferred to the fracture table and placed in the supine position with a well padded perineal post. All bony prominences were well padded. The right leg was attached to the traction device on the fracture bed. The left leg was then placed in a well leg castro and positioned out of the way of fluoroscopy. We then utilized the fracture table to reduce the fracture and obtained fluoroscopic images in AP and lateral planes confirming alignment. The right lower extremity was then prepped and draped in the normal manner. Preoperative antibiotics were given prior to incision. A surgical time out protocol was then performed. We then made an incision just proximal to the greater trochanter. We dissected down and through the IT band. We were then able to palpate the greater trochanter and we placed a guidepin in the appropriate starting position on the greater trochanter. We advanced the guidepin and the proximal femur slightly and then confirmed the position in both AP and lateral planes. After confirming acceptable pin placement, we advanced the pin to the level of the lesser trochanter. We then utilized an entry reamer over the pin to open up the canal. We then placed a 11 mm size short nail. We advanced the nail to the appropriate depth taking care to avoid any further injury. When the nail was at the appropriate depth we used the outrigger to place a guidepin into the femoral head. We confirmed central location of the pin on both AP and lateral x -rays. We we measured to a size 85 mm blade, and then drilled over the pin to the appropriate depth and placed a 85 mm blade confirming depth on fluoroscopy. There was compression across the fracture site that was visible on fluoroscopy. After confirming acceptable alignment of the fracture, we then used the outrigger to place a distal locking screw from lateral to medial. At this point we obtained final fluoroscopic images of the right hip and femur in both AP and lateral planes. We then thoroughly irrigated the wounds and closed the IT band with 0 Vicryl. Subcutaneous tissues were closed with 3-0 stratafix. Skin was closed with zipline. We then placed sterile dressings the patient was awoken by anesthesia and transferred to PACU in stable condition. Patient tolerated the procedure well. Postop plan: The patient will be transferred back to the floor and will be weight-bearing as tolerated postop. Implants: synthes TFN short nail, size 11 85 mm blade Anesthesia: GETA Surgeon: Jaylen Patel Was there an administrative assistant office manager present: No Estimated blood loss (cc): 50 Condition: stable Disposition: PACU
[2017-08-08] MEDS ORDERED: *HR* Promethazine 25 MG/ML VIAL IVP PRN (21:15)
[2017-08-08] MEDS ORDERED: Ondansetron 4 MG/2 ML VIAL IVP ONE (21:15)
[2017-08-08] MEDS ORDERED: Ringers Solution, Lactated 1,000 ML IVC SCH (21:15)
[2017-08-08] MEDS ORDERED: *HR* Labetalol 20 MG/4 ML SYRINGE IVP PRN (21:15)
--- NOTE | 2017-08-08 21:30 | Anesthesia Evaluation Post Op ---
Date of Encounter: 08/08/17 Time of Encounter: 21:30 - Vital Signs Vital Signs: Last Vital Signs Temp 97.9 F 08/08/17 21:08 Pulse 91 08/08/17 21:18 Resp 20 08/08/17 21:18 BP 123/99 08/08/17 21:18 Pulse Ox 95 08/08/17 21:18 - Lungs Lungs: Clear Ascult./Percussion - Airway Airway: Non-obstructed - Cardiovascular Regular Rate - Mental Status Mental Status: Alert & Oriented, Answers Appropriately - Pain Pain Scale: 2 - Nausea Vomiting Nausea Vomiting: Not Present - Hydration Hydration: NPO, Maciel catheter - Discharge PostOp Status: Transfer Patient to floor
[2017-08-08] MEDS: CeFAZolin Premix DUPLEX 2,000 MG/50 ML BAG IVPB SCH (23:38)
[2017-08-09 05:21] LABS: Basophils # 0.1 K/mcL (0.0-0.2); Basophils % 0.3 %; Eosinophils % 0.1 %; Hematocrit 33.1 % (35.3-44.9); Hemoglobin 10.8 g/dL (11.5-15.4); Immature Granulocytes % 0.4 % (0-4); Lymphocytes # 0.9 K/mcL (0.6-4.6); Lymphocytes % 5.7 %; Mean Corpuscular HGB Conc 32.6 g/dL (31.6-35.5); Mean Corpuscular Hemoglobin 28.1 pg (28.0-33.3); Mean Corpuscular Volume 86.2 fL (83.0-100.0); Mean Platelet Volume 11.4 fL (9.4-12.4); Monocytes # 0.7 K/mcL (0.0-1.3); Monocytes % 4.5 %; Neutrophils # 13.5 K/mcL (1.6-8.9); Platelet Count 196 K/mcL (140-400); Red Blood Count 3.84 M/mcL (3.82-4.97); Red Cell Distribution Width 13.2 % (11.5-14.5)
[2017-08-09 05:46] LABS: Albumin 3.4 g/dL (3.5-5.7); Albumin/Globulin Ratio 1.4 (1.1-2.2); Bilirubin,Total 0.6 mg/dL (0.3-1.0); Globulin 2.5 g/dL (2.4-3.5); Potassium 3.9 mEq/L (3.5-5.1); Total Protein 5.9 g/dL (6.4-8.9)
--- NOTE | 2017-08-09 08:12 | Orthopedics Progress Note ---
Date of Encounter: 08/09/17 Time of Encounter: 08:10 - Assessment and Plan (1) Intertrochanteric fracture of right hip Current Visit: Yes Status: Acute Qualifiers: Encounter type: initial encounter Fracture type: closed Fracture alignment: displaced Qualified Code(s): S72.141A - Displaced intertrochanteric fracture of right femur, initial encounter for closed fracture Subjective Interval history: S: First day post op following R hip TFN. R hip pain. No overnight issues. No f/ c/ns. No n/v. O: AFVSS GEN: NAD, AAOx3 RLE: Dress c/d/i SILT, DNVI +EHL/PF/DF A/P: POD#1 s/p R hip TFN -WBAT with PT -Pain control and DVT ppx per hospitalist service -Discharge planning Objective Vital signs: Vital Signs Temp Pulse Resp BP Pulse Ox 08/09/17 06:52 98.8 F 71 16 160/89 97 08/09/17 04:10 97.1 F L 98 16 140/72 95 08/09/17 00:45 98.5 F 92 16 147/77 98 08/08/17 23:45 98.5 F 89 16 154/75 96 08/08/17 22:45 98.3 F 85 16 165/91 97 08/08/17 22:15 97.8 F 77 18 160/85 95 08/08/17 22:08 96 08/08/17 21:45 98.6 F 72 18 164/52 96 08/08/17 21:38 98.2 F 75 20 157/76 93 08/08/17 21:28 88 20 154/85 97 08/08/17 21:18 91 20 123/99 95 08/08/17 21:08 97.9 F 102 18 142/81 99 08/08/17 15:36 98.3 F 71 18 162/73 97 Intake and Output 08/08/17 08/09/17 08/09/17 23:59 07:59 15:59 Intake Total 50 / 50 Output Total 850 / 850 200 / 200 Balance -850 / -850 -150 / -150 Intake: IV Fluids 50 / 50 Ancef Premix DUPLEX 2,000 mg In 50 / 50 50 ml @ 100 mls/hr IVPB Q8HR [facility] Rx#:[id number] Output: Estimated Blood Loss 50 / 50 Urine Amount (Catheter) 800 / 800 Catheter 200 / 200 Other: Blood Glucose* 107 126 - Labs CBC & BMP: 08/09/17 04:42 08/09/17 04:42 Labs: Abnormal lab results WBC 15.2 K/mcL (4.3-11.1) H D 08/09/17 04:42 Hgb 10.8 g/dL (11.5-15.4) L 08/09/17 04:42 Hct 33.1 % (35.3-44.9) L 08/09/17 04:42 Neutrophils # 13.5 K/mcL (1.6-8.9) H 08/09/17 04:42 Creatinine 1.78 mg/dL (0.60-1.20) H 08/09/17 04:42 Est GFR ( Amer) 33 (> 60) L 08/09/17 04:42 Est GFR (Non-Af Amer) 28 (> 60) L 08/09/17 04:42 Glucose 131 mg/dL (70-105) H 08/09/17 04:42 POC Glucose 126 (58-89) H 08/09/17 07:14 AST 12 Units/L (13-39) L 08/09/17 04:42 Serum Total Protein 5.9 g/dL (6.4-8.9) L 08/09/17 04:42 Albumin 3.4 g/dL (3.5-5.7) L 08/09/17 04:42 LDL Cholesterol, Calc 103 mg/dL (0-99) H 08/08/17 06:21 Urine Clarity Turbid (Clear) A 08/07/17 23:20 Urine Protein 30 mg/dL (Neg-Trace) H 08/07/17 23:20 Urine Blood Trace (Negative) H 08/07/17 23:20 Urine Nitrite Positive (Negative) A 08/07/17 23:20 Ur Leukocyte Esterase Large (Negative) H 08/07/17 23:20 Urine Microscopic RBC 5-15 per hpf (0-3) H 08/07/17 23:20 Urine Microscopic WBC TNTC per hpf (0-3) H 08/07/17 23:20 Ur Squamous Epith Cells Many per lpf (None-Few) H 08/07/17 23:20 Urine Bacteria Many per hpf (None-Few) H 08/07/17 23:20 - VTE Documentation of Mechanical Device: Intermittent pneumatic compression device Consult Discharge Plan - Plan Referrals: Jasmin Leone MD [Primary Care Provider] -
[2017-08-09] MEDS: NIFEdipine XL (24 HR) 60 MG TAB.ER.24 PO SCH (08:41)
[2017-08-09] MEDS: 0.9 % Sodium Chloride 1,000 ML IVC SCH ×3 (08:41→15:09)
[2017-08-09] MEDS: Cholecalciferol (D-3) 1,000 UNIT TABLET PO SCH (08:41)
[2017-08-09] MEDS: Gabapentin 300 MG CAPSULE PO SCH (08:41)
[2017-08-09] MEDS: Cyanocobalamin (B-12) 1,000 MCG TABLET PO SCH (08:41)
[2017-08-09] MEDS: CeFAZolin Premix DUPLEX 2,000 MG/50 ML BAG IVPB SCH (08:42)
--- NOTE | 2017-08-09 11:18 | Internal Med Progress Note ---
Date of Encounter: 08/09/17 Time of Encounter: 11:16 - Assessment and plan (1) Intertrochanteric fracture of right hip Current Visit: Yes Status: Acute Assessment and plan: Ortho surgery was consult, s/p R hip TFN on 08/08 Patient has no known history of CAD, but CKD III, creatinine less than 2, she is interactive at home unable to assist her functional capacity. she had echocardiogram done shows EF 60% grade 1 diastolic dysfunction. No further cardiac testing. Pending carotid doppler showed minimal disease consutl pT and oT, possible Rehab when ortho is ok. Qualifiers: Encounter type: initial encounter Fracture type: closed Fracture alignment: displaced Qualified Code(s): S72.141A - Displaced intertrochanteric fracture of right femur, initial encounter for closed fracture (2) UTI (urinary tract infection) Current Visit: Yes Status: Acute Assessment and plan: UA showed increased white cells positive nitrates on ceftriaxone Qualifiers: Urinary tract infection type: acute cystitis Hematuria presence: without hematuria Qualified Code(s): N30.00 - Acute cystitis without hematuria (3) HLD (hyperlipidemia) Current Visit: Yes Status: Chronic Qualifiers: Hyperlipidemia type: unspecified Qualified Code(s): E78.5 - Hyperlipidemia , unspecified (4) Gout Current Visit: Yes Status: Chronic Assessment and plan: Continue allopurinol 200 mg twice a day Qualifiers: Gout site: unspecified site Gout etiology: unspecified cause Chronicity: chronic Presence of tophus: without tophus Qualified Code(s): M1A.9XX0 - Chronic gout, unspecified, without tophus (tophi) (5) Arthritis Current Visit: Yes Status: Chronic (6) DVT prophylaxis Current Visit: Yes Status: Acute Assessment and plan: on lovenox Q12 per ortho (7) Hx of syncope Current Visit: Yes Status: Chronic Assessment and plan: Patient has history of stroke and carotid stenosis. Carotid Doppler showed minimal disease Patient is at increased the risk for perioperative stroke. (8) CKD (chronic kidney disease) stage 3, GFR 30-59 ml/min Current Visit: Yes Status: Chronic Assessment and plan: Continue IV fluids and monitor creatinine avoided nephrotoxic hypotension. Baseline creatinine 1.3-2.0, Creatinine trending up we will start IV fluids (9) Anemia associated with acute blood loss Current Visit: Yes Status: Acute Assessment and plan: Hb dropped from 13.3 to 10.8, matteo from acute blood loss from surgery and post -op - Time Spent With Patient 25 - 35 minutes - Subjective Interval history: Ms. Witt is a 77 year old female with medical hx of HLD, gout, and arthritis presents from the ED with chief complaint of right lower extremity pain related to a fall sustained in the bathroom today at 9 AM. She was found right hip fracture Patient is doing ok, pain is controlled, she has hx of stroke and carotid stenosis, pending carotid doppler. I called vascular surgeon Dr Brown, he will read the result after surgery. Echo showed normal EF 60%, grade 1 diastolic dysfunction. carotid doppler shsowed minimal disease Patient is doing well, she tolerated the procedure yesterday. Pain is the same , 5 out of 10. She is afebrile tolerated diet. - Constitutional Vitals: Temp Pulse Resp BP Pulse Ox 98.8 F 86 16 129/70 98 08/09/17 11:00 08/09/17 11:00 08/09/17 11:00 08/09/17 11:08/09/17 11:00 General appearance: Present: cooperative, A&O X 3, pleasant, underweight, answers questions appropriately Exam: CONSTITUTIONAL: patient appears as an age appropriate female in no acute distress. EYES Clear sclerae, bilateral pupils are equal, reactive to light. EMOI. RESPIRATORY: No accessory muscle use, bilateral clear to auscultation, no wheezing, no crackles/rales. CARDIOVASCULAR: Regular heart rate, normal S1 and S2, no murmurs GASTROINTESTINAL: bowel sounds present, soft, no tenderness. MUSCULOSKELETAL: Joints in normal range of motion, no clubbing, no edema, no cyanosis. Bilateral peripheral pulses 2+. NEUROLOGIC: CN II to XII are grossly intact, no focal neurological deficit. Internal Medicine: Result - Labs CBC & Chem 7: 08/09/17 04:42 08/09/17 04:42 Labs: Short CBC 08/09/17 Range/Units 04:42 WBC 15.2 H D (4.3-11.1) K/mcL Hgb 10.8 L (11.5-15.4) g/dL Hct 33.1 L (35.3-44.9) % Plt Count 196 (140-400) K/mcL Neutrophils # 13.5 H (1.6-8.9) K/mcL BMP 08/09/17 04:42 Sodium 139 Potassium 3.9 Chloride 105 Carbon Dioxide 25 BUN 20 Creatinine 1.78 H Glucose 131 H Calcium 9.0 Liver Function 08/09/17 Range/Units 04:42 Total Bilirubin 0.6 (0.3-1.0) mg/dL AST 12 L (13-39) Units/L ALT 9 (7-52) Units/L Alkaline Phosphatase 78 (34-104) Units/L Albumin 3.4 L (3.5-5.7) g/dL - ABG Interpretation ABG results: PT/INR, D-dimer PT 11.2 Seconds (9.4-12.1) 08/07/17 16:30 - Impressions Impressions Hip X-Ray 08/08/17 21:07 IMPRESSION: Open reduction and internal fixation of the right intertrochanteric fracture via a gamma nail. D/ / Bi Murphy MD / Bi Murphy MD Interpreting Provider: Bi Murphy MD Echocardiogram 08/08/17 22:00 Impressions: LVEF 60%. Mild left ventricular diastolic dysfunction. Normal right ventricular structure and function. Mild aortic regurgitation by color-flow imaging. May be moderate by Doppler. Mild mitral regurgitation. Mild tricuspid regurgitation. Mild pulmonic regurgitation. Mild pulmonary hypertension. Left Ventricular Wall Motion: Rest Echo Findings All wall segments showed normal motion. Findings: Study Quality * Technically adequate exam. ECG Findings * Normal sinus rhythm. Left Ventricle * LVEF 60%. * Asymmetric basal septal hypertrophy. No LVOTO. * Mild left ventricular diastolic dysfunction. Right Ventricle * Normal right ventricular structure and function. Left Atrium * Moderately dilated left atrium. Right Atrium * Normal right atrial size. Aortic Valve * Trileaflet aortic valve. * Mildly sclerotic aortic valve leaflets. * Mild aortic regurgitation by color-flow imaging. May be moderate by Doppler. * No aortic stenosis. Mitral Valve * Normal mitral valve structure. * No mitral stenosis. * Mildly thickened and calcified mitral valve leaflets. * Mild mitral regurgitation. Tricuspid Valve * Mild tricuspid regurgitation. * Normal tricuspid valve structure. * Estimated RA pressure is 3 mmHg. * Estimated RVSP is 39 mmHg. * Mild pulmonary hypertension. Pulmonic Valve * Pulmonic valve is not well visualized. * No pulmonic stenosis. * Mild pulmonic regurgitation. Pulmonary Artery * Pulmonary artery not well visualized. Aorta * Normally sized aortic root. * Ascending aorta is not well visualized. Pericardium * There is no pericardial effusion present. Interatrial Septum * No evidence of PFO with agitated saline contrast. IVC * Normal IVC dimensions and inspiratory collapse. - VTE Documentation of Mechanical Device: Venous foot pump, device Consult Discharge Plan - Plan Referrals: Jasmin Leone MD [Primary Care Provider] -
[2017-08-09] MEDS: *HR* HYDROcodone/Acet 5/325 mg TABLET PO PRN ×2 (13:01→20:12)
[2017-08-09] MEDS ORDERED: 0.9 % Sodium Chloride 500 ML IVC ONE (17:45)
[2017-08-09] MEDS ORDERED: Gabapentin 400 MG CAPSULE PO SCH (21:00)
[2017-08-09] MEDS ORDERED: *HR* Enoxaparin 30 MG/0.3 ML SYRINGE SQ SCH (21:03)
[2017-08-10] MEDS: *HR* HYDROcodone/Acet 5/325 mg TABLET PO PRN ×2 (02:05→10:06)
[2017-08-10] MEDS: 0.9 % Sodium Chloride 1,000 ML IVC SCH (02:06)
[2017-08-10] MEDS: *HR* OxyCODONE/APAP 10/325 TABLET PO PRN ×2 (05:34→15:29)
[2017-08-10] MEDS ORDERED: *HR* Enoxaparin 30 MG/0.3 ML SYRINGE SQ SCH (06:00)
[2017-08-10 06:19] LABS: Basophils # 0.1 K/mcL (0.0-0.2); Basophils % 0.8 %; Eosinophils # 0.6 K/mcL (0.0-0.6); Eosinophils % 7.1 %; Hematocrit 24.2 % (35.3-44.9); Immature Granulocytes % 0.3 % (0-4); Lymphocytes # 2.1 K/mcL (0.6-4.6); Lymphocytes % 26.9 %; Mean Corpuscular HGB Conc 32.2 g/dL (31.6-35.5); Mean Corpuscular Hemoglobin 27.9 pg (28.0-33.3); Mean Corpuscular Volume 86.4 fL (83.0-100.0); Mean Platelet Volume 11.3 fL (9.4-12.4); Monocytes # 0.7 K/mcL (0.0-1.3); Monocytes % 8.6 %; Neutrophils # 4.3 K/mcL (1.6-8.9); Platelet Count 148 K/mcL (140-400); Red Cell Distribution Width 13.3 % (11.5-14.5); Segmented Neutrophils % 56.3 %
[2017-08-10 06:21] LABS: Hemoglobin 7.8 g/dL (11.5-15.4)
[2017-08-10 07:20] LABS: Alanine Aminotransferase < 3 Units/L (7-52); Albumin 2.8 g/dL (3.5-5.7); Albumin/Globulin Ratio 1.3 (1.1-2.2); Alkaline Phosphatase 59 Units/L (34-104); Aspartate Amino Transferase 10 Units/L (13-39); BUN/Creatinine Ratio 12 (6-26); Bilirubin,Total 0.4 mg/dL (0.3-1.0); Blood Urea Nitrogen 27 mg/dL (8-23); Calcium 8.3 mg/dL (8.6-10.3); Carbon Dioxide 27 mEq/L (23-29); Chloride 108 mEq/L (98-107); Globulin 2.1 g/dL (2.4-3.5); Glucose 95 mg/dL (70-105); Osmolality,Calculated 293 (280-300); Potassium 3.9 mEq/L (3.5-5.1); Sodium 139 mEq/L (136-145); Total Protein 4.9 g/dL (6.4-8.9); eGFR For African Americans 25 (> 60); eGFR For Non-African Americans 20 (> 60)
--- NOTE | 2017-08-10 07:39 | Orthopedics Progress Note ---
Date of Encounter: 08/10/17 Time of Encounter: 07:37 - Assessment and Plan (1) Intertrochanteric fracture of right hip Current Visit: Yes Status: Acute Qualifiers: Encounter type: initial encounter Fracture type: closed Fracture alignment: displaced Qualified Code(s): S72.141A - Displaced intertrochanteric fracture of right femur, initial encounter for closed fracture Subjective Interval history: S: R hip pain improving. Up with PT yesterday. No overnight issues. No f/c/ns. No n/v. O: AFVSS GEN: NAD, AAOx3 RLE: Dress c/d/i SILT, DNVI +EHL/PF/DF A/P: POD#2 s/p R hip TFN -WBAT with PT -Pain control and DVT ppx per hospitalist service -Discharge planning Objective Vital signs: Vital Signs Temp Pulse Resp BP Pulse Ox 08/10/17 07:00 98.4 F 93 16 104/65 96 08/09/17 23:49 98.6 F 86 18 100/61 95 08/09/17 20:00 98 08/09/17 19:44 98.9 F 93 18 100/62 98 08/09/17 16:03 99.0 F 92 18 111/54 98 08/09/17 11:00 98.8 F 86 16 129/70 98 Intake and Output 08/09/17 08/09/17 08/10/17 15:59 23:59 07:59 Intake Total 370 / 370 200 / 200 1050 / 1050 Output Total 0 / 0 200 / 200 Balance 370 / 370 200 / 200 850 / 850 Intake: IV Fluids 50 / 50 1000 / 1000 0.9 % Sodium Chloride 1,000 ML 1000 / 1000 @ 100 mls/hr IVC .Q10H [facility] Rx#: [id number] Ancef Premix DUPLEX 2,000 mg In 50 / 50 50 ml @ 100 mls/hr IVPB Q8HR [facility] Rx#:[id number] Oral 320 / 320 200 / 200 50 / 50 Output: Urine 0 / 0 200 / 200 Other: Meal Lunch Dinner Percent of Meal Consumed 90% 25% Blood Glucose* 143 128 - Labs CBC & BMP: 08/10/17 05:51 08/10/17 05:51 Labs: Abnormal lab results RBC 2.80 M/mcL (3.82-4.97) L 08/10/17 05:51 Hgb 7.8 g/dL (11.5-15.4) L D 08/10/17 05:51 Hct 24.2 % (35.3-44.9) L 08/10/17 05:51 MCH 27.9 pg (28.0-33.3) L 08/10/17 05:51 Chloride 108 mEq/L (98-107) H 08/10/17 05:51 BUN 27 mg/dL (8-23) H 08/10/17 05:51 Creatinine 2.31 mg/dL (0.60-1.20) H 08/10/17 05:51 Est GFR ( Amer) 25 (> 60) L 08/10/17 05:51 Est GFR (Non-Af Amer) 20 (> 60) L 08/10/17 05:51 POC Glucose 128 (58-89) H 08/09/17 21:27 Calcium 8.3 mg/dL (8.6-10.3) L 08/10/17 05:51 AST 10 Units/L (13-39) L 08/10/17 05:51 ALT < 3 Units/L (7-52) L 08/10/17 05:51 Serum Total Protein 4.9 g/dL (6.4-8.9) L 08/10/17 05:51 Albumin 2.8 g/dL (3.5-5.7) L 08/10/17 05:51 Globulin 2.1 g/dL (2.4-3.5) L 08/10/17 05:51 LDL Cholesterol, Calc 103 mg/dL (0-99) H 08/08/17 06:21 Urine Clarity Turbid (Clear) A 08/07/17 23:20 Urine Protein 30 mg/dL (Neg-Trace) H 08/07/17 23:20 Urine Blood Trace (Negative) H 08/07/17 23:20 Urine Nitrite Positive (Negative) A 08/07/17 23:20 Ur Leukocyte Esterase Large (Negative) H 08/07/17 23:20 Urine Microscopic RBC 5-15 per hpf (0-3) H 08/07/17 23:20 Urine Microscopic WBC TNTC per hpf (0-3) H 01/16/18 23:20 Ur Squamous Epith Cells Many per lpf (None-Few) H 08/07/17 23:20 Urine Bacteria Many per hpf (None-Few) H 08/07/17 23:20 - VTE Documentation of Mechanical Device: Intermittent pneumatic compression device Consult Discharge Plan - Plan Additional Instructions: CUSTODIAL DISCHARGE INSTRUCTIONS Dr. Patel PROCEDURE PERFORMED Reduction and fixation of right hip. Incision care -Keep clear dressing in place. If dressing becomes saturated, may perform daily dressing changes to the right hip with dry gauze and either paper tape or medipore tape. -Avoid soaking wound in water (no hot tubs, bathtubs, swimming pools). -May shower after 2 weeks from surgery date. Carefully wash incision with soap and water. Gently pat it dry. Don't rub the incision, or apply creams or lotions. Sit on a shower stool when showering to keep from falling. Weight bearing status -Weightbearing as tolerated to the bilateral lower extremities. Medications -Pain medication per the discharging medical doctor -Enteric coated aspirin 325 mg by mouth twice per day for 28 days from the date of the surgery. [-Resume 50,000 units of vitamin D2 weekly and 1200 mg of calcium supplementation per day.] Other -Knee high SHEN hose 23 hours per day -Consult physical and occupational therapy for mobilization. -Up to chair with assistance at least twice per day. -Follow up with your primary care physician to discuss testing for bone mineral density. Follow-Up -Follow-up with Dr. Patel in office in 2 weeks from the surgery date for a post-operative evaluation. -Call the office at [phone] to schedule or confirm your appointment. -Follow up with your primary care physician to discuss testing for bone mineral density. Referrals: Jasmin Leone MD [Primary Care Provider] -
[2017-08-10] MEDS: Cholecalciferol (D-3) 1,000 UNIT TABLET PO SCH (10:06)
[2017-08-10] MEDS: Gabapentin 300 MG CAPSULE PO SCH (10:06)
[2017-08-10] MEDS: NIFEdipine XL (24 HR) 60 MG TAB.ER.24 PO SCH (10:06)
[2017-08-10] MEDS: Cyanocobalamin (B-12) 1,000 MCG TABLET PO SCH (10:06)
--- NOTE | 2017-08-10 17:01 | Discharge Summary ---
Date of Encounter: 08/10/17 Time of Encounter: 16:58 - Discharge Diagnosis (1) Intertrochanteric fracture of right hip Priority: Primary Status: Acute Comments: patient is doing well, post-op pain is well controlled, she has been tolerating diet, encouraged her to keep oral intake ortho recommended: [-Resume 50,000 units of vitamin D2 weekly and 1200 mg of calcium supplementation per day.] ok to givel ovenox insteead of ASA per Dr Patel due to CKDIII Follow-Up -Follow-up with Dr. Patel in office in 2 weeks from the surgery date for a post-operative evaluation. -Call the office at [phone] to schedule or confirm your appointment. -Follow up with your primary care physician to discuss testing for bone mineral density Qualifiers: Encounter type: initial encounter Fracture type: closed Fracture alignment: displaced Qualified Code(s): S72.141A - Displaced intertrochanteric fracture of right femur, initial encounter for closed fracture (2) UTI (urinary tract infection) Priority: Secondary Status: Resolved Qualifiers: Urinary tract infection type: acute cystitis Hematuria presence: without hematuria Qualified Code(s): N30.00 - Acute cystitis without hematuria (3) HLD (hyperlipidemia) Priority: Secondary Status: Chronic Qualifiers: Hyperlipidemia type: unspecified Qualified Code(s): E78.5 - Hyperlipidemia , unspecified (4) Gout Priority: Secondary Status: Chronic Qualifiers: Gout site: unspecified site Gout etiology: unspecified cause Chronicity: chronic Presence of tophus: without tophus Qualified Code(s): M1A.9XX0 - Chronic gout, unspecified, without tophus (tophi) (5) Arthritis Priority: Secondary Status: Chronic (6) DVT prophylaxis Priority: Secondary Status: Resolved Comments: on lovenox 30 mg daily (7) Hx of syncope Priority: Secondary Status: Resolved (8) CKD (chronic kidney disease) stage 3, GFR 30-59 ml/min Priority: Secondary Status: Chronic (9) Anemia associated with acute blood loss Priority: Secondary Status: Resolved - Discharge Medications Prescriptions: HYDROcodone/Acet 5/325 mg [[place] 5-325 mg] 1 tab PO Q4HR PRN 7 Days #30 tablet PRN Reason: Moderate Pain (4-6) Enoxaparin [Lovenox] 30 mg SQ 0600 28 Days #28 syringe Home Medications: Allopurinol [Zyloprim 100 MG] 200 mg PO BID 05/08/17 [History] NIFEdipine [Nifedipine ER] 60 mg PO DAILY 05/08/17 [History] Simvastatin [Zocor] 40 mg PO HS 05/08/17 [History] Cholecalciferol (D-3) [Vitamin D] 1,000 unit PO DAILY 08/07/17 [History] Cyanocobalamin (Vitamin B-12) [Vitamin B-12] 500 mcg PO DAILY 08/07/17 [History] Gabapentin [Neurontin] 300 mg PO QAM 08/07/17 [History] Gabapentin [Neurontin] 400 mg PO HS 08/07/17 [History] Meloxicam 15 mg PO DAILY 08/07/17 [History] Oxycodone HCl/Acetaminophen [Percocet 10-325 mg Tablet] 1 each PO Q8H PRN [History] Tizanidine HCl 4 mg PO Q8H PRN 08/07/17 [History] Calcium Carbonate [Calcium] 600 mg PO BID 30 Days #60 tablet 08/10/17 [Rx] Enoxaparin [Lovenox] 30 mg SQ 0600 28 Days #28 syringe 08/10/17 [Rx] Ergocalciferol (VITAMIN D2) [Vitamin D2] 50,000 unit PO Q1W 60 Days #6 capsule 08/10/17 [Rx] HYDROcodone/Acet 5/325 mg [[place] 5-325 mg] 1 tab PO Q4HR PRN 7 Days #30 tablet 08/10/17 [Rx] Allergies/Adverse Reactions: 3 Allergy/AdvReac Type Severity Reaction Status Date / Time Iodinated Contrast- Oral and AdvReac Intermediate Hives Verified 06/12/17 15:25 IV Dye aspirin AdvReac Unknown Abdominal Verified 06/12/17 15:25 Pain Procedures/tests Complete & Pending: Procedures Performed prior 72 hours Category Date Time Status ECG 12 lead ECG [ECG] Routine Y 08/07/17 16:24 Completed EV carotid duplex imaging BI Routine Y 08/08/17 22:01 Completed EV echo with saline Routine Y 08/08/17 22:00 Completed Date of admission: 08/07/17 16:35 Primary care physician: Jasmin Leone MD Consults: 08/07/17 17:33 Consult to Nutrition [CONS] Routine Comment: Consulting Provider: NUTRITION Reason for Dietary Consult: MST Score Consult to Marketing Information Coordinator [CONS] Routine Reason for SW Consult: possible home health 08/07/17 21:57 Consult to Occupational Therapy [CONS] Routine Comment: Evaluate, develop and implement POC Reason for Consult: Please fell and has fx of right femur. Please assess patient for appropriateness of rehabilitation/placement post-discharge. 08/07/17 21:58 Consult to Physical Therapy [CONS] Routine Comment: Evaluate, develop and implement POC Reason for Consult: Please fell and has fx of right femur. Please assess patient for appropriateness of rehabilitation/placement post-discharge. 08/08/17 21:07 Consult to Occupational Therapy [CONS] Routine Comment: Evaluate, develop and implement POC Reason for Consult: post hip surgery Consult to Orthopedic Navigator [CONS] [CONS] Routine Consult to Physical Therapy [CONS] Routine Comment: Evaluate, develop and implement POC Reason for Consult: post hip surgery Consult to Marketing Information Coordinator [CONS] Routine Reason for SW Consult: post -op hip fracture RT Post Op Consult [CONS] Routine Discharging clinician: Jennifer Wells Anticipated date of discharge: 08/10/17 - Patient Status Disposition: Transfer SNF Condition: Fair Functional capacity at discharge: uses cane/walker Overall status at discharge: patient is not back to baseline - Discharge Instructions Follow Up With: Jasmin Leone MD [Primary Care Provider] - Jaylen Patel MD [Non-Partnered Physician] - Additional Instructions: DETENTION DISCHARGE INSTRUCTIONS Dr. Patel PROCEDURE PERFORMED Reduction and fixation of right hip. Incision care -Keep clear dressing in place. If dressing becomes saturated, may perform daily dressing changes to the right hip with dry gauze and either paper tape or medipore tape. -Avoid soaking wound in water (no hot tubs, bathtubs, swimming pools). -May shower after 2 weeks from surgery date. Carefully wash incision with soap and water. Gently pat it dry. Don't rub the incision, or apply creams or lotions. Sit on a shower stool when showering to keep from falling. Weight bearing status -Weightbearing as tolerated to the bilateral lower extremities. Medications -Pain medication per the discharging medical doctor -Enteric coated aspirin 325 mg by mouth twice per day for 28 days from the date of the surgery. [-Resume 50,000 units of vitamin D2 weekly and 1200 mg of calcium supplementation per day.] Other -Knee high SHEN hose 23 hours per day -Consult physical and occupational therapy for mobilization. -Up to chair with assistance at least twice per day. -Follow up with your primary care physician to discuss testing for bone mineral density. Follow-Up -Follow-up with Dr. Patel in office in 2 weeks from the surgery date for a post-operative evaluation. -Call the office at [phone] to schedule or confirm your appointment. -Follow up with your primary care physician to discuss testing for bone mineral density. - Diet and Activity Activity: ambulate only with your walker Diet: advance to your usual diet Interval History: Ms. Witt is a 77 year old female with medical hx of HLD, gout, and arthritis presents from the ED with chief complaint of right lower extremity pain related to a fall sustained in the bathroom today at 9 AM. She was found right hip fracture Patient is doing ok, pain is controlled, she has hx of stroke and carotid stenosis, pending carotid doppler. I called vascular surgeon Dr Brown, he will read the result after surgery. Echo showed normal EF 60%, grade 1 diastolic dysfunction. carotid doppler shsowed minimal disease Patient is doing well, she tolerated the procedure yesterday. Pain is the same , 5 out of 10. She is afebrile tolerated diet. patient is ready to go to rehab Hospital course: Ms. Witt is a 77 year old female with medical hx of HLD, gout, and arthritis presents from the ED with chief complaint of right lower extremity pain related to a fall sustained in the bathroom today at 9 AM. She was found right hip fracture Patient is doing ok, pain is controlled, she has hx of stroke and carotid stenosis, pending carotid doppler. I called vascular surgeon Dr Brown, he will read the result after surgery. Echo showed normal EF 60%, grade 1 diastolic dysfunction. carotid doppler shsowed minimal disease Patient is doing well, she tolerated the procedure on 08/09. Pain is the same, 5 out of 10. She is afebrile tolerated diet. I discussed with Dr Patel, he is ok to d/c, and ok for ASA or lovenox. I discussed with pharmacisit, patient has CKD 3-4, pharmacist recommended lovenox 30 mg daily patient is discahrge on stable condition (1) Intertrochanteric fracture of right hip Current Visit: Yes Status: Acute Assessment and plan: Ortho surgery was consult, s/p R hip TFN on 08/08 (2) UTI (urinary tract infection) Current Visit: Yes Status: Acute Assessment and plan: UA showed increased white cells positive nitrates on ceftriaxone, d/c on 3 days of cipro Qualifiers: Urinary tract infection type: acute cystitis Hematuria presence: without hematuria Qualified Code(s): N30.00 - Acute cystitis without hematuria (3) HLD (hyperlipidemia) Current Visit: Yes Status: Chronic Qualifiers: Hyperlipidemia type: unspecified Qualified Code(s): E78.5 - Hyperlipidemia , unspecified (4) Gout Current Visit: Yes Status: Chronic Assessment and plan: Continue allopurinol 200 mg twice a day Qualifiers: Gout site: unspecified site Gout etiology: unspecified cause Chronicity: chronic Presence of tophus: without tophus Qualified Code(s): M1A.9XX0 - Chronic gout, unspecified, without tophus (tophi) (5) Arthritis Current Visit: Yes Status: Chronic (6) DVT prophylaxis Current Visit: Yes Status: Acute Assessment and plan: on lovenox Q12 per ortho (7) Hx of syncope Current Visit: Yes Status: Chronic Assessment and plan: Patient has history of stroke and carotid stenosis. Carotid Doppler showed minimal disease Patient is at increased the risk for perioperative stroke. (8) CKD (chronic kidney disease) stage 3, GFR 30-59 ml/min Current Visit: Yes Status: Chronic Assessment and plan: Continue IV fluids and monitor creatinine avoided nephrotoxic hypotension. Baseline creatinine 1.3-2.0, Creatinine trending, will follow up Cr on sunday at [facility] (9) Anemia associated with acute blood loss Current Visit: Yes Status: Acute Assessment and plan: Hb dropped from 13.3 to 10.8, likley from acute blood loss from surgery and post -op - Time Spent with Patient Total time spent providing and/or coordinating discharge services: - Constitutional Vitals: Temp Pulse Resp BP Pulse Ox 98.1 F 87 16 108/67 97 08/10/17 09:45 08/10/17 09:45 08/10/17 09:45 08/10/17 09:45 08/10/17 09:45 General appearance: Present: cooperative, A&O X 3, pleasant, underweight, answers questions appropriately Exam: CONSTITUTIONAL: patient appears as an age appropriate female in no acute distress. EYES Clear sclerae, bilateral pupils are equal, reactive to light. EMOI. RESPIRATORY: No accessory muscle use, bilateral clear to auscultation, no wheezing, no crackles/rales. CARDIOVASCULAR: Regular heart rate, normal S1 and S2, no murmurs GASTROINTESTINAL: bowel sounds present, soft, no tenderness. MUSCULOSKELETAL: Joints in normal range of motion, no clubbing, no edema, no cyanosis. Bilateral peripheral pulses 2+. NEUROLOGIC: CN II to XII are grossly intact, no focal neurological deficit. - VTE Documentation of Mechanical Device: Intermittent pneumatic compression device
[2017-08-10 17:06] VITALS: BP 114/65
--- NOTE | 2017-08-10 17:38 | Physician Discharge Referral ---
ExtendedCare Referral Info Transfer To: SNF Provider in Charge: shabnam Provider in Charge after Transfer: PCP Institutional Level of Care: Skilled (please check chem 7 next Sunday due to CKD ) - Diagnosis (1) Intertrochanteric fracture of right hip Priority: Primary Status: Acute (2) UTI (urinary tract infection) Priority: Secondary Status: Resolved (3) HLD (hyperlipidemia) Priority: Secondary Status: Chronic (4) Gout Priority: Secondary Status: Chronic (5) Arthritis Priority: Secondary Status: Chronic (6) DVT prophylaxis Priority: Secondary Status: Resolved (7) Hx of syncope Priority: Secondary Status: Resolved (8) CKD (chronic kidney disease) stage 3, GFR 30-59 ml/min Priority: Secondary Status: Chronic (9) Anemia associated with acute blood loss Priority: Secondary Status: Resolved - Transfer Medications Prescriptions: HYDROcodone/Acet 5/325 mg [[place] 5-325 mg] 1 tab PO Q4HR PRN 7 Days #30 tablet PRN Reason: Moderate Pain (4-6) Calcium Carbonate [Calcium] 600 mg PO BID 30 Days #60 tablet Ciprofloxacin HCl [Cipro] 250 mg PO BID 3 Days #6 tablet Enoxaparin [Lovenox] 30 mg SQ 0600 28 Days #28 syringe Ergocalciferol (VITAMIN D2) [Vitamin D2] 50,000 unit PO Q1W 60 Days #6 capsule Home Medications: Allopurinol [Zyloprim 100 MG] 200 mg PO BID 05/08/17 [History] NIFEdipine [Nifedipine ER] 60 mg PO DAILY 05/08/17 [History] Simvastatin [Zocor] 40 mg PO HS 05/08/17 [History] Cholecalciferol (D-3) [Vitamin D] 1,000 unit PO DAILY 08/07/17 [History] Cyanocobalamin (Vitamin B-12) [Vitamin B-12] 500 mcg PO DAILY 08/07/17 [History] Gabapentin [Neurontin] 300 mg PO QAM 08/07/17 [History] Gabapentin [Neurontin] 400 mg PO HS 08/07/17 [History] Meloxicam 15 mg PO DAILY 08/07/17 [History] Oxycodone HCl/Acetaminophen [Percocet 10-325 mg Tablet] 1 each PO Q8H PRN [History] Tizanidine HCl 4 mg PO Q8H PRN 08/07/17 [History] Calcium Carbonate [Calcium] 600 mg PO BID 30 Days #60 tablet 08/10/17 [Rx] Ciprofloxacin HCl [Cipro] 250 mg PO BID 3 Days #6 tablet 08/10/17 [Rx] Enoxaparin [Lovenox] 30 mg SQ 0600 28 Days #28 syringe 08/10/17 [Rx] Ergocalciferol (VITAMIN D2) [Vitamin D2] 50,000 unit PO Q1W 60 Days #6 capsule 08/10/17 [Rx] HYDROcodone/Acet 5/325 mg [[place] 5-325 mg] 1 tab PO Q4HR PRN 7 Days #30 tablet 08/10/17 [Rx] Allergies/Adverse Reactions: 3 Allergy/AdvReac Type Severity Reaction Status Date / Time Iodinated Contrast- Oral and AdvReac Intermediate Hives Verified 06/12/17 15:25 IV Dye aspirin AdvReac Unknown Abdominal Verified 06/12/17 15:25 Pain - Respiratory Orders None Smoking Cessation: Smoking cessation has been advised. For more information, call the [place] Tobacco Quit Line at 7-886-YDDX-NOW. 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 The above information is true and accurate reflection of patient's current condition. Confidential - Redisclosure prohibited without a patient's written consent.
== END 2017-08-10 19:45 | DRG 481 ==
LOC: EMEROO 12:02 → SUATTDRO 16:35 → 3NENU 16:35
PROVIDERS: ADMIT Nurse Practitioner Family; ATTEND Hospitalist

== ENCOUNTER 2020-02-14 04:07 | Inpatient (IN) ==
[2020-02-14 04:49] LABS: Basophils # 0.1 K/mcL (0.0-0.2); Basophils % 0.8 %; Eosinophils # 0.1 K/mcL (0.0-0.6); Eosinophils % 0.8 %; Hematocrit 40.9 % (35.3-44.9); Hemoglobin 13.7 g/dL (11.5-15.4); Immature Granulocytes % 0.2 % (0-4); Lymphocytes % 52.1 %; Mean Corpuscular HGB Conc 33.5 g/dL (31.6-35.5); Mean Corpuscular Hemoglobin 29.8 pg (28.0-33.3); Mean Corpuscular Volume 89.1 fL (83.0-100.0); Mean Platelet Volume 11.5 fL (9.4-12.4); Monocytes # 0.4 K/mcL (0.0-1.3); Monocytes % 3.8 %; Neutrophils # 3.9 K/mcL (1.6-8.9); Platelet Count 264 K/mcL (140-400); Red Blood Count 4.59 M/mcL (3.82-4.97); Red Cell Distribution Width 13.9 % (11.5-14.5); Segmented Neutrophils % 42.3 %
[2020-02-14 04:50] LABS: Lymphocytes # 4.7 K/mcL (0.6-4.6); White Blood Count 9.1 K/mcL (4.3-11.1)
[2020-02-14 05:07] LABS: Albumin 4.3 g/dL (3.5-5.7); Albumin/Globulin Ratio 1.7 (1.1-2.2); Bilirubin,Direct 0.1 mg/dL (0.0-0.2); Bilirubin,Indirect 0.4 mg/dL (0.0-1.0); Bilirubin,Total 0.5 mg/dL (0.3-1.0); Calcium 9.7 mg/dL (8.6-10.3); Globulin 2.5 g/dL (2.4-3.5); Potassium 2.8 mEq/L (3.5-5.1); Total Protein 6.8 g/dL (6.4-8.9)
[2020-02-14] MEDS ORDERED: Potassium Effervescent 25 MEQ TABLET.EFF PO ONE (05:25)
[2020-02-14] MEDS ORDERED: 0.9 % Sodium Chloride 1,000 ML IVC SCH (05:45)
[2020-02-14] MEDS ORDERED: amLODIPine 5 MG TABLET PO ONE (06:15)
[2020-02-14] MEDS ORDERED: Naloxone 0.4 MG/ML INJ IVP PRN (06:31)
[2020-02-14] MEDS ORDERED: amLODIPine 5 MG TABLET PO SCH (09:00)
[2020-02-14] MEDS: Mirtazapine 15 MG TABLET PO SCH (09:12)
[2020-02-14] MEDS: 0.9 % Sodium Chloride w KCl 40 MEQ/1,000 ML MLS IVC SCH (17:11)
[2020-02-14] MEDS: hydrALAZINE 25 MG TABLET PO SCH (17:11)
[2020-02-14] MEDS: *HR* Heparin 5,000 UNIT/ML VIAL SQ SCH (17:22)
[2020-02-15] MEDS: hydrALAZINE 25 MG TABLET PO SCH ×4 (00:10→23:41)
[2020-02-15] MEDS: 0.9 % Sodium Chloride w KCl 40 MEQ/1,000 ML MLS IVC SCH ×2 (02:24→09:22)
[2020-02-15] MEDS: *HR* Heparin 5,000 UNIT/ML VIAL SQ SCH ×2 (05:49→16:50)
[2020-02-15 06:13] LABS: Basophils # 0.1 K/mcL (0.0-0.2); Basophils % 1.4 %; Eosinophils # 0.2 K/mcL (0.0-0.6); Eosinophils % 2.1 %; Hematocrit 39.2 % (35.3-44.9); Immature Granulocytes % 0.1 % (0-4); Lymphocytes # 4.7 K/mcL (0.6-4.6); Lymphocytes % 63.8 %; Mean Corpuscular HGB Conc 33.2 g/dL (31.6-35.5); Mean Corpuscular Hemoglobin 29.5 pg (28.0-33.3); Mean Corpuscular Volume 89.1 fL (83.0-100.0); Mean Platelet Volume 11.4 fL (9.4-12.4); Monocytes # 0.4 K/mcL (0.0-1.3); Monocytes % 5.1 %; Platelet Count 232 K/mcL (140-400); Red Cell Distribution Width 13.8 % (11.5-14.5); Segmented Neutrophils % 27.5 %; White Blood Count 7.3 K/mcL (4.3-11.1)
[2020-02-15 06:31] LABS: Calcium 9.2 mg/dL (8.6-10.3); Potassium 4.8 mEq/L (3.5-5.1)
[2020-02-15 08:54] LABS: Bilirubin,Urine Negative (Negative); Blood,Urine Negative (Negative); Clarity,Urine Clear (Clear); Color,Urine Colorless (Yellow); Glucose,Urine (UA) Normal (Normal); Ketones,Urine Negative (Negative); Leukocyte Esterase,Urine Negative (Negative); Nitrite,Urine Negative (Negative); PH,Urine 7.5 pH Units (5.0-8.0); Protein,Urine Negative (Neg-Trace); Specific Gravity,Urine 1.008 (1.010-1.025); Urobilinogen,Urine Normal (Normal)
[2020-02-15] MEDS: amLODIPine 5 MG TABLET PO SCH (09:19)
[2020-02-15] MEDS: Mirtazapine 15 MG TABLET PO SCH (09:19)
[2020-02-15] MEDS ORDERED: Acetaminophen 325 MG TABLET PO ONE (10:22)
[2020-02-16] MEDS: hydrALAZINE 25 MG TABLET PO SCH ×2 (03:58→09:24)
[2020-02-16 05:25] LABS: Potassium 3.9 mEq/L (3.5-5.1)
[2020-02-16] MEDS: *HR* Heparin 5,000 UNIT/ML VIAL SQ SCH (05:48)
[2020-02-16] MEDS: Mirtazapine 15 MG TABLET PO SCH (09:22)
[2020-02-16] MEDS: amLODIPine 5 MG TABLET PO SCH (09:23)
[2020-02-16 10:54] VITALS: BP 167/71
== END 2020-02-16 13:21 | disposition home or self-care (01) | DRG 305 ==
LOC: EMEROOARM 04:07 → 3BNU 04:07 → SUATTDRO 05:51 → 3BNU 06:30
PROVIDERS: ADMIT Internal Medicine; ATTEND Internal Medicine

== ENCOUNTER 2021-06-30 20:48 | Inpatient (IN) ==
[2021-06-30 22:37] LABS: Basophils % 0.6 %; Eosinophils # 0.1 K/mcL (0.0-0.6); Eosinophils % 1.5 %; Hematocrit 36.4 % (35.3-44.9); Hemoglobin 11.8 g/dL (11.5-15.4); Immature Granulocytes % 0.2 % (0-4); Lymphocytes # 2.5 K/mcL (0.6-4.6); Lymphocytes % 46.2 %; Mean Corpuscular HGB Conc 32.4 g/dL (31.6-35.5); Mean Corpuscular Hemoglobin 27.6 pg (28.0-33.3); Mean Corpuscular Volume 85.2 fL (83.0-100.0); Mean Platelet Volume 11.6 fL (9.4-12.4); Monocytes # 0.4 K/mcL (0.0-1.3); Monocytes % 7.4 %; Neutrophils # 2.3 K/mcL (1.6-8.9); Platelet Count 211 K/mcL (140-400); Red Blood Count 4.27 M/mcL (3.82-4.97); Red Cell Distribution Width 13.4 % (11.5-14.5); Segmented Neutrophils % 44.1 %; White Blood Count 5.3 K/mcL (4.3-11.1)
[2021-06-30 22:46] LABS: Prothrombin Time 11.3 Seconds (9.4-12.1)
[2021-06-30 22:48] LABS: Activated Partial Thrombo Time 38.1 Seconds (26.0-36.0)
[2021-06-30 22:59] LABS: Alanine Aminotransferase 5 Units/L (7-52); Albumin 4.1 g/dL (3.5-5.7); Albumin/Globulin Ratio 1.6 (1.1-2.2); Alkaline Phosphatase 84 Units/L (34-104); Aspartate Amino Transferase 8 Units/L (13-39); BUN/Creatinine Ratio 10 (6-26); Bilirubin,Direct 0.1 mg/dL (0.0-0.2); Bilirubin,Indirect 0.3 mg/dL (0.0-1.0); Bilirubin,Total 0.4 mg/dL (0.3-1.0); Blood Urea Nitrogen 18 mg/dL (8-23); Calcium 9.4 mg/dL (8.6-10.3); Carbon Dioxide 29 mEq/L (23-29); Chloride 103 mEq/L (98-107); Ethanol < 10 mg/dL (Less than 10); Globulin 2.5 g/dL (2.4-3.5); Glucose 91 mg/dL (70-105); Osmolality,Calculated 293 (280-300); Potassium 3.5 mEq/L (3.5-5.1); Sodium 141 mEq/L (136-145); Total Protein 6.6 g/dL (6.4-8.9); Troponin I < 0.03 ng/mL (< 0.04); eGFR For African Americans 33 (> 60); eGFR For Non-African Americans 27 (> 60)
[2021-06-30 23:12] LABS: Thyroid Stimulating Hormone 1.799 mcIU/mL (0.340-5.600)
[2021-06-30 23:14] LABS: Bilirubin,Urine Negative (Negative); Blood,Urine Negative (Negative); Clarity,Urine Clear (Clear); Color,Urine Yellow (Yellow); Glucose,Urine (UA) Normal (Normal); Ketones,Urine Negative (Negative); Leukocyte Esterase,Urine Negative (Negative); Nitrite,Urine Negative (Negative); PH,Urine 6.5 pH Units (5.0-8.0); Protein,Urine Negative (Neg-Trace); Specific Gravity,Urine 1.025 (1.010-1.025); Urobilinogen,Urine Normal (Normal)
[2021-06-30 23:16] LABS: Bacteria,Urine Moderate per hpf (None-Few); Hyaline Casts,Urine Few per lpf (None Seen); Mucus,Urine Few per lpf (None-Few); RBC,Urine 0-3 per hpf (0-3); Squamous Epithelial Cell,Urine Moderate per hpf (None-Few); WBC,Urine 0-3 per hpf (0-3)
[2021-06-30 23:23] LABS: Amphetamine Screen,Urine Negative ng/mL (Cutoff=1000); Barbiturate Screen,Urine Negative ng/mL (Cutoff=200); Benzodiazepines Screen,Urine Negative ng/mL (Cutoff=200); Cannabinoid Screen,Urine Negative ng/mL (Cutoff = 50); Cocaine Screen,Urine Negative ng/mL (Cutoff= 300); Opiate Screen,Urine Negative ng/mL (Cutoff=300); Phencyclidine Screen,Urine Negative ng/mL (Cutoff=25)
[2021-06-30] MEDS ORDERED: *HR* Labetalol 20 MG/4 ML SYRINGE IVP ONE (23:51)
[2021-07-01] MEDS ORDERED: Ondansetron 4 MG/2 ML VIAL IVP PRN (02:47)
[2021-07-01] MEDS ORDERED: Naloxone 0.4 MG/ML INJ IVP PRN (02:47)
[2021-07-01] MEDS: Acetaminophen 325 MG TABLET PO PRN ×2 (03:15→13:51)
[2021-07-01 04:51] LABS: White Blood Count 5.2 K/mcL (4.3-11.1)
[2021-07-01 04:52] LABS: Basophils % 0.8 %; Eosinophils # 0.1 K/mcL (0.0-0.6); Eosinophils % 2.3 %; Hematocrit 34.9 % (35.3-44.9); Hemoglobin 11.7 g/dL (11.5-15.4); Immature Granulocytes % 0.2 % (0-4); Lymphocytes # 2.7 K/mcL (0.6-4.6); Lymphocytes % 50.6 %; Mean Corpuscular HGB Conc 33.5 g/dL (31.6-35.5); Mean Corpuscular Hemoglobin 27.9 pg (28.0-33.3); Mean Corpuscular Volume 83.3 fL (83.0-100.0); Mean Platelet Volume 11.9 fL (9.4-12.4); Monocytes # 0.3 K/mcL (0.0-1.3); Monocytes % 5.5 %; Neutrophils # 2.1 K/mcL (1.6-8.9); Platelet Count 218 K/mcL (140-400); Red Blood Count 4.19 M/mcL (3.82-4.97); Red Cell Distribution Width 13.3 % (11.5-14.5); Segmented Neutrophils % 40.6 %
[2021-07-01 05:09] LABS: Alanine Aminotransferase 5 Units/L (7-52); Albumin 3.8 g/dL (3.5-5.7); Albumin/Globulin Ratio 1.7 (1.1-2.2); Alkaline Phosphatase 79 Units/L (34-104); Aspartate Amino Transferase 10 Units/L (13-39); BUN/Creatinine Ratio 11 (6-26); Bilirubin,Total 0.6 mg/dL (0.3-1.0); Blood Urea Nitrogen 17 mg/dL (8-23); Calcium 9.3 mg/dL (8.6-10.3); Carbon Dioxide 25 mEq/L (23-29); Chloride 106 mEq/L (98-107); Globulin 2.2 g/dL (2.4-3.5); Glucose 89 mg/dL (70-105); Osmolality,Calculated 291 (280-300); Phosphorous 2.4 mg/dL (2.7-4.5); Potassium 3.2 mEq/L (3.5-5.1); Sodium 140 mEq/L (136-145); Troponin I < 0.03 ng/mL (< 0.04); eGFR For African Americans 38 (> 60); eGFR For Non-African Americans 31 (> 60)
[2021-07-01] MEDS ORDERED: *HR* Labetalol 20 MG/4 ML SYRINGE IVP ONE (05:45)
[2021-07-01] MEDS ORDERED: hydrALAZINE 25 MG TABLET PO SCH (09:10)
[2021-07-01] MEDS ORDERED: amLODIPine 5 MG TABLET PO SCH (15:00)
[2021-07-01] MEDS: *HR* Heparin 5,000 UNIT/ML VIAL SQ SCH (17:12)
[2021-07-02 01:46] LABS: Hematocrit 34.9 % (35.3-44.9); Hemoglobin 11.6 g/dL (11.5-15.4); Mean Corpuscular HGB Conc 33.2 g/dL (31.6-35.5); Mean Corpuscular Hemoglobin 28.3 pg (28.0-33.3); Mean Corpuscular Volume 85.1 fL (83.0-100.0); Mean Platelet Volume 11.5 fL (9.4-12.4); Platelet Count 204 K/mcL (140-400); Red Cell Distribution Width 13.3 % (11.5-14.5); White Blood Count 5.6 K/mcL (4.3-11.1)
[2021-07-02 02:07] LABS: Potassium 3.5 mEq/L (3.5-5.1)
[2021-07-02] MEDS: Acetaminophen 325 MG TABLET PO PRN (03:52)
[2021-07-02] MEDS: *HR* Heparin 5,000 UNIT/ML VIAL SQ SCH ×2 (05:15→16:53)
[2021-07-02] MEDS: amLODIPine 5 MG TABLET PO SCH (08:52)
[2021-07-02] MEDS: lisinopriL 5 MG TABLET PO SCH (08:52)
[2021-07-02] MEDS ORDERED: *HR* Labetalol 20 MG/4 ML SYRINGE IVP ONE (15:18)
[2021-07-02] MEDS: *HR* OxyCODONE Immed Rel 5 MG TABLET PO PRN (16:52)
[2021-07-02] MEDS: Mirtazapine 15 MG TABLET PO SCH (19:47)
[2021-07-03] MEDS: Acetaminophen 325 MG TABLET PO PRN ×2 (04:21→23:28)
[2021-07-03] MEDS: *HR* Heparin 5,000 UNIT/ML VIAL SQ SCH ×2 (04:56→18:25)
[2021-07-03 05:58] LABS: Hemoglobin 12.9 g/dL (11.5-15.4); Mean Corpuscular HGB Conc 33.9 g/dL (31.6-35.5); Mean Corpuscular Hemoglobin 28.7 pg (28.0-33.3); Mean Corpuscular Volume 84.6 fL (83.0-100.0); Mean Platelet Volume 11.2 fL (9.4-12.4); Platelet Count 227 K/mcL (140-400); Red Blood Count 4.49 M/mcL (3.82-4.97); Red Cell Distribution Width 13.7 % (11.5-14.5); White Blood Count 5.8 K/mcL (4.3-11.1)
[2021-07-03 06:18] LABS: Calcium 9.2 mg/dL (8.6-10.3); Potassium 3.7 mEq/L (3.5-5.1)
[2021-07-03] MEDS: lisinopriL 5 MG TABLET PO SCH (07:33)
[2021-07-03] MEDS: amLODIPine 5 MG TABLET PO SCH (07:33)
[2021-07-03] MEDS: *HR* OxyCODONE Immed Rel 5 MG TABLET PO PRN ×2 (10:22→23:28)
[2021-07-03] MEDS: Nicotine 21 MG PATCH.TD24 TD SCH (11:19)
[2021-07-03] MEDS: Pantoprazole 40 MG VIAL IVP SCH (18:29)
[2021-07-03] MEDS: Mirtazapine 15 MG TABLET PO SCH (20:32)
[2021-07-03] MEDS: Melatonin 3 MG TABLET PO PRN (23:28)
[2021-07-04] MEDS: *HR* Heparin 5,000 UNIT/ML VIAL SQ SCH ×2 (05:31→16:43)
[2021-07-04] MEDS: Pantoprazole 40 MG VIAL IVP SCH ×2 (05:31→17:21)
[2021-07-04] MEDS: Nicotine 21 MG PATCH.TD24 TD SCH (09:02)
[2021-07-04] MEDS: amLODIPine 5 MG TABLET PO SCH (09:02)
[2021-07-04] MEDS: *HR* OxyCODONE Immed Rel 5 MG TABLET PO PRN ×2 (10:41→16:42)
[2021-07-04] MEDS: hydrALAZINE 25 MG TABLET PO SCH ×2 (17:21→23:56)
[2021-07-04] MEDS: Melatonin 3 MG TABLET PO PRN (17:52)
[2021-07-04] MEDS ORDERED: Haloperidol Lactate 5 MG/ML VIAL IM ONE (20:01)
[2021-07-04] MEDS ORDERED: *HR* LORazepam 2 MG/ML VIAL IVP ONE (20:01)
[2021-07-04] MEDS ORDERED: Morphine Sulfate 2 MG/ML SYRINGE IVP ONE (20:39)
[2021-07-04] MEDS: Mirtazapine 15 MG TABLET PO SCH (23:09)
[2021-07-04] MEDS: QUEtiapine Fumarate 25 MG TABLET PO SCH (23:09)
[2021-07-05] MEDS: Pantoprazole 40 MG VIAL IVP SCH (05:37)
[2021-07-05] MEDS: hydrALAZINE 25 MG TABLET PO SCH ×3 (05:37→19:29)
[2021-07-05] MEDS: *HR* Heparin 5,000 UNIT/ML VIAL SQ SCH ×2 (05:37→19:29)
[2021-07-05 06:03] LABS: Calcium 8.9 mg/dL (8.6-10.3); Potassium 3.8 mEq/L (3.5-5.1)
[2021-07-05] MEDS: Nicotine 21 MG PATCH.TD24 TD SCH (09:57)
[2021-07-05] MEDS: amLODIPine 5 MG TABLET PO SCH (09:57)
[2021-07-05] MEDS: *HR* OxyCODONE Immed Rel 5 MG TABLET PO PRN ×2 (16:16→23:21)
[2021-07-05] MEDS: QUEtiapine Fumarate 25 MG TABLET PO SCH (19:29)
[2021-07-05] MEDS: Mirtazapine 15 MG TABLET PO SCH (19:29)
[2021-07-06] MEDS: hydrALAZINE 25 MG TABLET PO SCH ×4 (00:13→23:22)
[2021-07-06 03:16] LABS: Calcium 8.7 mg/dL (8.6-10.3); Potassium 3.9 mEq/L (3.5-5.1)
[2021-07-06] MEDS: *HR* Heparin 5,000 UNIT/ML VIAL SQ SCH ×2 (07:14→18:03)
[2021-07-06] MEDS: *HR* OxyCODONE Immed Rel 5 MG TABLET PO PRN ×2 (09:12→16:06)
[2021-07-06] MEDS: amLODIPine 5 MG TABLET PO SCH (09:12)
[2021-07-06] MEDS: Nicotine 21 MG PATCH.TD24 TD SCH (09:13)
[2021-07-06] MEDS: QUEtiapine Fumarate 25 MG TABLET PO SCH (20:56)
[2021-07-06] MEDS: Mirtazapine 15 MG TABLET PO SCH (20:56)
[2021-07-06] MEDS: polyethylene glycoL 3350 17 GM POWD.PACK PO SCH (20:57)
[2021-07-06] MEDS: Acetaminophen 325 MG TABLET PO PRN (23:16)
[2021-07-07] MEDS: *HR* Heparin 5,000 UNIT/ML VIAL SQ SCH ×2 (06:22→18:15)
[2021-07-07 09:20] VITALS: O2SAT 100
[2021-07-07] MEDS: hydrALAZINE 25 MG TABLET PO SCH ×3 (09:21→23:10)
[2021-07-07] MEDS: polyethylene glycoL 3350 17 GM POWD.PACK PO SCH (09:22)
[2021-07-07] MEDS: Nicotine 21 MG PATCH.TD24 TD SCH (09:22)
[2021-07-07] MEDS: amLODIPine 5 MG TABLET PO SCH (09:22)
[2021-07-07] MEDS: *HR* OxyCODONE Immed Rel 5 MG TABLET PO PRN (16:54)
[2021-07-07] MEDS ORDERED: 0.9 % Sodium Chloride 1,000 ML IVC SCH (17:00)
[2021-07-07 17:02] LABS: Calcium 8.9 mg/dL (8.6-10.3); Potassium 4.1 mEq/L (3.5-5.1)
[2021-07-07] MEDS: Acetaminophen 325 MG TABLET PO PRN (20:16)
[2021-07-07] MEDS: Melatonin 3 MG TABLET PO PRN (20:17)
[2021-07-07] MEDS: Mirtazapine 15 MG TABLET PO SCH (20:17)
[2021-07-07] MEDS: QUEtiapine Fumarate 25 MG TABLET PO SCH (20:17)
[2021-07-08 05:04] VITALS: BP 167/52; PULSE 59; TEMP 96.3
[2021-07-08] MEDS: *HR* Heparin 5,000 UNIT/ML VIAL SQ SCH (05:07)
[2021-07-08] MEDS: polyethylene glycoL 3350 17 GM POWD.PACK PO SCH (09:17)
[2021-07-08] MEDS: hydrALAZINE 25 MG TABLET PO SCH (09:17)
[2021-07-08] MEDS: amLODIPine 5 MG TABLET PO SCH (09:18)
[2021-07-08] MEDS: Nicotine 21 MG PATCH.TD24 TD SCH (09:18)
[2021-07-08 12:05] LABS: Calcium 9.2 mg/dL (8.6-10.3); Potassium 3.8 mEq/L (3.5-5.1)
== END 2021-07-08 14:00 | disposition home health service (06) | DRG 304 ==
LOC: 2NENU 20:48 → EMEROOARM 20:48 → SUATTDRO 07-01 01:11 → 2NENU 07-01 02:41 → SUATTDRO 07-01 08:50
PROVIDERS: ADMIT Internal Medicine; ATTEND Internal Medicine